=== PATIENT | male | born 1955 | race Hispanic/Latino ===

== ENCOUNTER → 2024-01-26 | Emergency (ER) | payer OTHER ==
[~2024-01-26] MED LIST: HYDRALAZINE HCL 20 MG/ML VIAL ONE; LOSARTAN POTASSIUM 50 MG TABLET ONE; MECLIZINE HCL 12.5 MG TAB ONE; TENECTEPLASE 50 MG/10 ML VIAL IV ONE; cloNIDine HCL 0.1 MG TAB ONE
[2024-01-26 04:49] LABS: PT Prothrombin Time 10.9 SECONDS (9.5-12.5); Protime INR 0.99
[2024-01-26 04:52] LABS: Absolute Basophils 0.1 K/uL (0-0.5); Absolute Eosinophils 0.2 K/uL (0-0.5); Absolute Lymphocytes (CBC) 2.2 K/uL (0.7-4.9); Absolute Monocytes 0.7 K/uL (0.1-1.3); Basophils % 0.7 % (0-1.3); Hematocrit 37.2 % (39.6-49.0); Hemoglobin 12.7 g/dL (13.6-17.9); Lymphocytes % 26.2 % (15.3-44.8); MCH 31.7 pg (27.0-35.0); MCHC 34.1 g/dL (32.0-36.0); MCV 92.8 fL (80-100); MPV 9.7 fL (7.6-11.3); Monocytes % 8.9 % (3.3-12.3); Neutrophils % 61.2 % (41.7-73.7); Nucleated Red Blood Cells % 0.1 % (0-0); Platelets 172 thou/uL (152-406); RBC Red Blood Cell Count 4.01 M/uL (4.33-5.43); Red Cell Distribution Width 13.7 % (12.1-15.2)
[2024-01-26 05:15] LABS: Albumin 3.9 g/dL (3.4-5.0); Albumin/Globulin Ratio 1.1 (1.1-1.8); Anion Gap 9.8 mEq/L (5.0-15.0); Bilirubin Direct 0.2 mg/dL (0-0.2); Bilirubin Indirect, Calculated 0.5 mg/dL (0.2-0.8); Bilirubin Total 0.7 mg/dL (0.2-1.0); Globulin 3.6 g/dL (2.3-3.5); Magnesium 2.3 mg/dL (1.6-2.4); Potassium 3.8 mEq/L (3.5-5.1); Protein, Total 7.5 g/dL (6.4-8.2); Troponin High Sensitivity 18.6 pg/mL (<58.9)
--- NOTE | 2024-01-26 06:16 | EDPHYS ---
Physician Documentation [facility] Name: Beau Euceda Age: 68 yrs Sex: Male : 1955 Arrival Date: 01/26/2024 Time: 04:14 Bed 5 Private MD: ED Physician Parth Hernández HPI: 01/25 04:21 This 68 yrs old Male presents to ER via Unassigned with complaints of General sp4 Weakness, Dizziness. 04:35 68-year-old male presents with acute onset of generalized weakness and vertigo starting sp4 at 1 AM today. Historical: - Allergies: 04:44 No Known Allergies; jb4 - PMHx: 04:44 None; jb4 - PSHx: 04:44 None; jb4 - Immunization history:: Adult Immunizations not up to date. - Social history:: Smoking status: Patient reports the use of cigarette tobacco products, 4 Cigarettes per day. - Family history:: not pertinent. ROS: 04:35 Constitutional: Negative for fever, chills, and weight loss, positive for generalized sp4 weakness and vertigo Eyes: Negative for injury, pain, redness, and discharge, 04:35 All other systems are negative, Exam: 04:34 ECG was reviewed by the Attending Physician. EKG 0 412 , normal sinus rhythm at the sp4 rate of 71 04:35 Constitutional: This is a well developed, well nourished patient who is awake, alert, sp4 and in no acute distress. Head/Face: Normocephalic, atraumatic. Eyes: Pupils equal round and reactive to light, extra-ocular motions intact. Lids and lashes normal. Conjunctiva and sclera are not injected. Cornea within normal limits. Periorbital areas with no swelling, redness, or edema. ENT: Nares patent. No nasal discharge, no septal abnormalities noted. Tympanic membranes are normal and external auditory canals are clear. Oropharynx with no redness, swelling, or masses, exudates, or evidence of obstruction, uvula midline. Mucous membranes moist. Neck: Trachea midline, no thyromegaly or masses palpated, and no cervical lymphadenopathy. Supple, full range of motion without nuchal rigidity, or vertebral point tenderness. Chest/axilla: Normal chest wall appearance and motion. Nontender with no deformity. No lesions are appreciated. Cardiovascular: Regular rate and rhythm with a normal S1 and S2. No gallops, murmurs, or rubs. Normal PMI, no JVD. No pulse deficits. Respiratory: Lungs have equal breath sounds bilaterally, clear to auscultation and percussion. No rales, rhonchi or wheezes noted. No increased work of breathing, no retractions or nasal flaring. Abdomen/GI: Soft, with normal bowel sounds. No distension or tympany. No guarding or rebound. No evidence of tenderness throughout. Back: No spinal tenderness. No costovertebral tenderness. Skin: Warm, dry with normal turgor. Normal color with no rashes, no lesions, and no evidence of cellulitis. MS/ Extremity: Pulses equal, no cyanosis. Neurovascular intact. Full, normal range of motion. Neuro: Awake and alert, GCS 15, oriented to person, place, time, and situation. Cranial nerves II-XII grossly intact. Motor strength 5/5 in all extremities. Sensory grossly intact. Psych: Awake, alert, with orientation to person, place and time. Behavior, mood, and affect are within normal limits Vital Signs: 04:23 Pulse 77; Resp 16; Temp 97.8(O); Pulse Ox 99% ; Weight 89 kg; Height 5 ft. 10 in. ; hb Pain 0/10; 05:26 BP 177 / 92; Pulse 78; Resp 18; Temp 97.8; Pulse Ox 99% on R/A; Pain 0/10; bm8 06:30 BP 163 / 110; Pulse 75; Resp 21; Pulse Ox 98% ; vc1 07:15 BP 112 / 62; Pulse 58; Resp 15; Pulse Ox 100% on R/A; hb 07:30 BP 136 / 74; Pulse 66; Resp 17; Pulse Ox 100% on R/A; hb 07:45 BP 112 / 62; Pulse 59; Resp 15; Pulse Ox 98% on R/A; hb 04:23 Body Mass Index 28.15 (89.00 kg, 177.8 cm) hb 04:23 Pain Scale: Adult hb 05:26 Pain Scale: Adult bm8 NIH Stroke Scale Scores: 04:35 NIHSS Score: 0 sp4 07:15 NIHSS Score: 11 hb 07:17 NIHSS Score: 11 sp4 [place] Score: 04:30 Eye Response: spontaneous(4). Motor Response: obeys commands(6). Verbal Response: km8 oriented(5). Total: 15. 04:35 Eye Response: spontaneous(4). Motor Response: obeys commands(6). Verbal Response: sp4 oriented(5). Total: 15. MDM: 04:29 Patient medically screened. sp4 04:58 Differential diagnosis: cardiac arrhythmia, generalized weakness, head injury, sp4 hypovolemia, idiopathic dizziness. Data reviewed: vital signs, nurses notes, lab test result(s), EKG, radiologic studies, CT scan, plain films. ED course: EXAM DESCRIPTION: Chest Single View CLINICAL HISTORY: dizziness COMPARISON: CXR, 12-31-2015. FINDINGS: Cardiac silhouette is within normal limits. EKG leads project over the chest. Decreased lung volumes could be secondary to underinflation. There is no focal parenchymal or pleural disease. There is no acute osseous process visualized. IMPRESSION: No evidence of acute cardiopulmonary disease. . 06:02 ED course: EXAM DESCRIPTION: CT Head Brain Wo Cont CLINICAL HISTORY: vertigo acute sp4 COMPARISON: 01/07/2016. TECHNIQUE: Contiguous axial images of the brain were obtained without the administration of intravenous contrast. This exam was performed according to our departmental dose-optimization program, which includes automated exposure control, adjustment of the mA and/or kV according to patient size and/or use of iterative reconstruction technique. FINDINGS: There is no acute intracranial hemorrhage or mass effect. Ventricular system is within normal limits. There is adequate flanagan-white matter differentiation. There is no skull fracture. Mild mucoperiosteal thickening of the maxillary sinuses compatible with mild chronic sinusitis changes. IMPRESSION: No acute intracranial abnormalities. . 06:14 Consideration of Admission/Observation Patient was admitted/placed on observation. sp4 Escalation of care including admission/observation considered. Management of patient was discussed with the following: Hospitalist: Admission team . ED course: Patient warrants admission for blood pressure control. 07:17 ED course: Shortly after 6:13 AM patient has developed acute left-sided weakness with sp4 sensory deficits and slurring of the speech. TNK was considered with the patient patient and his have agreed for a margin TNK administration. . 07:19 ED course: TNK was ordered and TNK administration was ordered. sp4 07:19 ED course: EXAM DESCRIPTION: CT Head Brain Wo Cont CLINICAL HISTORY: vertigo acute sp4 COMPARISON: 01/07/2016. TECHNIQUE: Contiguous axial images of the brain were obtained without the administration of intravenous contrast. This exam was performed according to our departmental dose-optimization program, which includes automated exposure control, adjustment of the mA and/or kV according to patient size and/or use of iterative reconstruction technique. FINDINGS: There is no acute intracranial hemorrhage or mass effect. Ventricular system is within normal limits. There is adequate flanagan-white matter differentiation. There is no skull fracture. Mild mucoperiosteal thickening of the maxillary sinuses compatible with mild chronic sinusitis changes. IMPRESSION: No acute intracranial abnormalities. Electronically signed by: Gomez Plata MD 01/26/2024 05:20 AM. 08:21 Transition of care: After a detail discussion of the patient's case, care is sp4 transferred to Roger Phillips MD. 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 Images performed following intravenous administration of 100mL Isovue 370. All CT scans are performed using dose optimization technique as appropriate and may include automated exposure control or mA/KV adjustment according to patient size. FINDINGS: Tortuosity with marked caliber attenuation at a branch point suggesting high-grade stenosis versus branch occlusion at the proximal A2 segment, see series 412, image 115 and series 401 image 225. Mild focal narrowing along the proximal right A1 segment, axial image 222. No other evidence of large vessel occlusion or significant stenosis. No evidence of aneurysm or dissection flap is detected. No flow-limiting stenosis or vascular malformation identified. Antegrade flow is seen in the vertebral arteries. The vertebral arteries are codominant. The visualized dural venous sinuses are grossly patent. IMPRESSION: Marked caliber attenuation and tortuosity along the proximal right A2 segment, suggesting high-grade stenosis versus branch occlusion of the ANGELI. The findings were communicated to Dr. Hernández on 01/26/2024 at 08:13 hours. 08:28 ED course: CT has revealed IMPRESSION: Marked caliber attenuation and tortuosity along sp4 the proximal right A2 segment, suggesting high-grade stenosis versus branch occlusion of the ANGELI. This was discussed with attending neurologist who recommended emergent transfer to the [facility] for endovascular intervention. Patient was discussed with attending neurologist at [facility] who has accepted patient as ER to ER transfer for consideration for mechanical thrombectomy. . 01/25 04:29 Order name: Basic Metabolic Panel; Complete Time: 06:00 sp4 01/25 04:29 Order name: CBC with Diff; Complete Time: 06:00 sp4 01/25 04:29 Order name: LFT's; Complete Time: 06:00 sp4 01/25 04:29 Order name: Magnesium; Complete Time: 06:00 sp4 01/25 04:29 Order name: NT PRO-BNP; Complete Time: 06:00 sp4 01/25 04:29 Order name: PT-INR; Complete Time: 04:58 sp4 01/25 04:29 Order name: Troponin HS; Complete Time: 06:00 sp4 01/25 04:42 Order name: Glucose, Ancillary Testing; Complete Time: 04:49 EDMS 01/25 04:29 Order name: XRAY Chest (1 view) sp4 01/25 04:29 Order name: CT Head Brain wo Cont sp4 01/25 07:31 Order name: Head angio; Complete Time: 08:20 EDMS 01/25 07:31 Order name: Neck Angio EDMS 01/25 04:29 Order name: EKG; Complete Time: 04:30 sp4 01/25 04:29 Order name: Cardiac monitoring; Complete Time: 04:30 sp4 01/25 04:29 Order name: EKG - Nurse/Tech; Complete Time: 04:30 sp4 01/25 04:29 Order name: IV Saline Lock; Complete Time: 04:31 sp4 01/25 04:29 Order name: Labs collected and sent; Complete Time: 04:31 sp4 01/25 04:29 Order name: O2 Per Protocol; Complete Time: 04:31 sp4 01/25 04:29 Order name: O2 Sat Monitoring; Complete Time: 04:31 sp4 01/25 04:30 Order name: Blood Glucose Level; Complete Time: 04:30 km8 EC:34 Rate is 71 beats/min. Rhythm is regular, Normal Sinus Rhythm. QRS [place] is Normal. ND sp4 interval is normal. QRS interval is normal. QT interval is normal. No Q waves. T waves are Normal. No ST changes noted. Clinical impression: No evidence of ischemia. Interpreted by me. Reviewed by me. Administered Medications: 04:34 Drug: Meclizine PO 50 mg PO once Route: PO; km8 06:12 Follow up: Response: No adverse reaction bm8 04:50 Drug: hydrALAZINE IVP 20 mg IVP once Route: IVP; Site: right antecubital; km8 05:33 Follow up: Response: No adverse reaction; Marked relief of symptoms bm8 06:12 Drug: Losartan PO 100 mg PO once Route: PO; jb4 06:15 Drug: cloNIDine PO 0.2 mg PO once Route: PO; jb4 07:20 Drug: TNK FOR STROKE - Tenecteplase IV 0.25 mg/kg IV at per protocol once; MAX hb DOSE 25 mg, IVP over 5 seconds {Co-Signature: vish (Bon Culver RN).} Route: IV; Rate: per protocol; Site: right forearm; Disposition Summary: 01/26/24 08:28 Transfer Ordered Notes: Transfer Location: [facility] sp4 Reason: Higher level of care sp4 Condition: Stable(01/26/24 08:28) sp4 Problem: new(01/26/24 08:28) sp4 Symptoms: have improved(01/26/24 08:28) sp4 Accepting Physician: [facility] Attending Neurology(01/26/24 08:59) hb Diagnosis - Acute ischemic CVA, acute left-sided hemiparesis, 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 Total time: 60 minutes NIH Stroke Scale - NIH Stroke Score Date: 01/26/2024 Time: 04:35 Total Score = 0 10. Dysarthria (speech clarity - read or repeat words) - 0(Normal) 11. Extinction and Inattention (visual/tactile/auditory/spatial/personal) - 0(No abnormality) 1a. Level of Consciousness (LOC) - 0(Alert) 1b. Level of Consciousness (LOC) (Month \T\ Age) - 0(Both) 1c. LOC Commands (Open \T\ Closes Eyes/Circular Tank [place]) - 0(Both) 2. Best Gaze (Lateral Gaze Paresis) - 0(Normal) 3. Visual Field Loss - 0(No visual loss) 4. Facial Palsy - 0(Normal) 5a. Left Arm: Motor (10-second hold) - 0(No drift) 5b. Right Arm: Motor (10-second hold) - 0(No drift) 6a. Left Leg: Motor (5-second hold - always test supine) - 0(No drift) 6b. Right Leg: Motor (5-second hold - always test supine) - 0(No drift) 7. Limb Ataxia (finger/nose \T\ heel/bashir - test with eyes open) - 0(Absent) 8. Sensory Loss (pinprick arms/legs/face) - 0(Normal) 9. Best Language: Aphasia (description/naming/reading) - 0(No aphasia) Initials: sp4 NIH Stroke Scale - NIH Stroke Score Date: 01/26/2024 Time: 07:15 Total Score = 11 10. Dysarthria (speech clarity - read or repeat words) - 1(Mild to Moderate) 11. Extinction and Inattention (visual/tactile/auditory/spatial/personal) - 0(No abnormality) 1a. Level of Consciousness (LOC) - 0(Alert) 1b. Level of Consciousness (LOC) (Month \T\ Age) - 0(Both) 1c. LOC Commands (Open \T\ Closes Eyes/Circular Tank [place]) - 0(Both) 2. Best Gaze (Lateral Gaze Paresis) - 1(Partial gaze palsy) 3. Visual Field Loss - 1(Partial hemianopia) 4. Facial Palsy - 1(Minor Paralysis) 5a. Left Arm: Motor (10-second hold) - 3(No effort against gravity) 5b. Right Arm: Motor (10-second hold) - 0(No drift) 6a. Left Leg: Motor (5-second hold - always test supine) - 3(No effort against gravity) 6b. Right Leg: Motor (5-second hold - always test supine) - 0(No drift) 7. Limb Ataxia (finger/nose \T\ heel/bashir - test with eyes open) - 0(Absent) 8. Sensory Loss (pinprick arms/legs/face) - 1(Mild to moderate loss) 9. Best Language: Aphasia (description/naming/reading) - 0(No aphasia) Initials: NIH Stroke Scale - NIH Stroke Score Date: 01/26/2024 Time: 07:17 Total Score = 11 10. Dysarthria (speech clarity - read or repeat words) - 1(Mild to Moderate) 11. Extinction and Inattention (visual/tactile/auditory/spatial/personal) - 0(No abnormality) 1a. Level of Consciousness (LOC) - 0(Alert) 1b. Level of Consciousness (LOC) (Month \T\ Age) - 0(Both) 1c. LOC Commands (Open \T\ Closes Eyes/Circular Tank [place]) - 0(Both) 2. Best Gaze (Lateral Gaze Paresis) - 1(Partial gaze palsy) 3. Visual Field Loss - 1(Partial hemianopia) 4. Facial Palsy - 1(Minor Paralysis) 5a. Left Arm: Motor (10-second hold) - 3(No effort against gravity) 5b. Right Arm: Motor (10-second hold) - 0(No drift) 6a. Left Leg: Motor (5-second hold - always test supine) - 3(No effort against gravity) 6b. Right Leg: Motor (5-second hold - always test supine) - 0(No drift) 7. Limb Ataxia (finger/nose \T\ heel/bashir - test with eyes open) - 0(Absent) 8. Sensory Loss (pinprick arms/legs/face) - 1(Mild to moderate loss) 9. Best Language: Aphasia (description/naming/reading) - 0(No aphasia) Initials: sp4 Signatures: Dispatcher [employer] EDMS Vicky Nash RN RN Bon Culver RN RN jb4 Parth Hernández MD MD sp4 Kristy Rawls RN RN 8 Remi Lopes RN 8 Bon Culver RN jb4 Corrections: (The following items were deleted from the chart) 08: 06:16 Observation sp4 sp4 08:23 06:16 Roger Phillips sp4 sp4 08:23 06:16 Telemetry/MedSurg (observation) sp4 sp4 08:23 06:16 Stable sp4 sp4 08: 06:16 new sp4 sp4 08: 06:16 have improved sp4 sp4 08: 06:16 Standard sp4 sp4 08: 06:16 sp4 sp4 08:23 06:16 Essential (primary) hypertension sp4 sp4 08: 06:16 Hypertensive urgency, generalized weakness, acute vertigo sp4 sp4 08:59 08:28 [facility] Attending Neurology sp4 hb
--- NOTE | 2024-01-26 06:16 | ER ---
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 It feels like the room is spinning in front of my eyes. Coronavirus screen: At this time, the client does not indicate any symptoms associated with coronavirus-19. Ebola Screen: No symptoms or risks identified at this time. Initial Sepsis Screen: Does the patient meet any 2 criteria? No. Patient's initial sepsis screen is negative. Does the patient have a suspected source of infection? No. Patient's initial sepsis screen is negative. Risk Assessment: Do you want to hurt yourself or someone else? Patient reports no desire to harm self or others. Onset of symptoms was January 26, 2024. Transition of care: patient was not received from another setting of care. 04:23 Method Of Arrival: Wheelchair jb4 04:23 Acuity: ELEONORA 3 jb4 Triage Assessment: 04:44 General: Appears in no apparent distress. comfortable, Behavior is calm, cooperative, jb4 appropriate for age. Pain: Denies pain. Neuro: Level of Consciousness is awake, alert, obeys commands, Oriented to person, place, time, situation, Reports dizziness, since 0300. Cardiovascular: Patient's skin is warm and dry. Respiratory: Airway is compromised Respiratory effort is even, unlabored, Respiratory pattern is regular, symmetrical. Derm: Skin is intact, Skin is pink, warm \T\ dry. Historical: - Allergies: 04:44 No Known Allergies; jb4 - PMHx: 04:44 None; jb4 - PSHx: 04:44 None; jb4 - Immunization history:: Adult Immunizations not up to date. - Social history:: Smoking status: Patient reports the use of cigarette tobacco products, 4 Cigarettes per day. - Family history:: not pertinent. Screenin:[address] [facility] ED Fall Risk Assessment (Adult) History of falling in the last 3 months, km8 including since admission No falls in past 3 months (0 pts) Confusion or Disorientation No (0 pts) Intoxicated or Sedated No (0 pts) Impaired Gait No (0 pts) Mobility Assist Device Used No (0 pt) Altered Elimination No (0 pt) Score/Fall Risk Level 0 - 2 = Low Risk Oriented to surroundings, Maintained a safe environment, Educated pt \T\ family on fall prevention, incl call for assistance when getting out of bed, Assessed \T\ reinforced patient's understanding of fall precautions, Provided non-skid footwear, Hourly rounding (assess needs \T\ fall precautionary measures) done, Used ambulatory aids as needed (educated on \T\ assisted with). Abuse screen: Denies threats or abuse. Denies injuries from another. Nutritional screening: No deficits noted. Tuberculosis screening: No symptoms or risk factors identified. 04:30 [place] Swallow Protocol Exclusion Criteria: Unable to remain alert for testing: No NPO km8 for medical/surgical reason by provider order No Head-of-bed restricted <30 degrees Tracheostomy tube present No No thin liquids due to preexisting dysphagia/baseline modified diet thickened liquids No Brief Cognitive Screen What is your name? Normal, Where are you right now? Normal, What year is it? Normal. Oral Mechanism Examination Facial Symmetry: Normal, Motion: Normal, Lip Closure: Normal, Oral Mechanism Result: Normal. 3 oz Water Swallow Challenge: Pt able to drink all water without stopping, coughing, choking or throat clearing: Yes Result: PASS. 07:30 [place] Swallow Protocol Exclusion Criteria: Unable to remain alert for testing: No NPO hb for medical/surgical reason by provider order No Tracheostomy tube present No No thin liquids due to preexisting dysphagia/baseline modified diet thickened liquids No Brief Cognitive Screen What is your name? Normal, Where are you right now? Normal, What year is it? Normal. Oral Mechanism Examination Facial Symmetry: Normal, Motion: Normal, Lip Closure: Normal, Oral Mechanism Result: Normal. 3 oz Water Swallow Challenge: Pt able to drink all water without stopping, coughing, choking or throat clearing: Yes Result: PASS. Assessment: 04:30 General: Appears in no apparent distress. comfortable, Behavior is calm, cooperative, km8 appropriate for age. Pain: Denies pain. Neuro: Level of Consciousness is awake, alert, obeys commands, Oriented to person, place, time, situation, Media Strategist are equal bilaterally Moves all extremities. 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 Cardiovascular: Denies chest pain, shortness of breath, Patient's skin is warm and dry. Respiratory: Airway is patent Respiratory effort is even, unlabored, Respiratory pattern is regular, symmetrical. GI: No signs and/or symptoms were reported involving the gastrointestinal system. : No signs and/or symptoms were reported regarding the genitourinary system. EENT: No signs and/or symptoms were reported regarding the EENT system. Derm: No signs and/or symptoms reported regarding the dermatologic system. Skin is intact, is healthy with good turgor, Skin is dry, Skin is normal, Skin temperature is warm. Musculoskeletal: No signs and/or symptoms reported regarding the musculoskeletal system. Range of motion: intact in all extremities. 05:30 Reassessment: No changes from previously documented assessment. Patient and/or family vc1 updated on plan of care and expected duration. Pain level reassessed. Patient is alert, oriented x 3, equal unlabored respirations, skin warm/dry/pink. 06:35 General: Appears in no apparent distress. comfortable, Behavior is calm, cooperative, vc1 appropriate for age, Patient ambulated to bathroom by nurse. 07:05 Reassessment: Report received from Abrahan CARPENTER, pt hospitalized in ED awaiting room hb assignment, c/o sudden onset left sided weakness that started at approx [address] Hernández at bedside to discuss TNK with pt and . 07:20 Reassessment: TNK administered to 20g RFA, see paper chart for stroke hb ovservations/vitals. Vital Signs: 04:23 Pulse 77; Resp 16; Temp 97.8(O); Pulse Ox 99% ; Weight 89 kg; Height 5 ft. 10 in. ; hb Pain 0/10; 05:26 BP 177 / 92; Pulse 78; Resp 18; Temp 97.8; Pulse Ox 99% on R/A; Pain 0/10; bm8 06:30 BP 163 / 110; Pulse 75; Resp 21; Pulse Ox 98% ; vc1 07:15 BP 112 / 62; Pulse 58; Resp 15; Pulse Ox 100% on R/A; hb 07:30 BP 136 / 74; Pulse 66; Resp 17; Pulse Ox 100% on R/A; hb 07:45 BP 112 / 62; Pulse 59; Resp 15; Pulse Ox 98% on R/A; hb 04:23 Body Mass Index 28.15 (89.00 kg, 177.8 cm) hb 04:23 Pain Scale: Adult hb 05:26 Pain Scale: Adult bm8 Bronson Coma Score: 04:30 Eye Response: spontaneous(4). Motor Response: obeys commands(6). Verbal Response: km8 oriented(5). Total: 15. 04:35 Eye Response: spontaneous(4). Motor Response: obeys commands(6). Verbal Response: sp4 oriented(5). Total: 15. NIH Stroke Scale Scores: 04:35 NIHSS Score: 0 sp4 07:15 NIHSS Score: 11 hb 07:17 NIHSS Score: 11 sp4 ED Course: 04:16 Patient arrived in ED. jj6 04:21 Parth Hernández MD is Attending Physician. sp4 04:25 Triage completed. jb4 04:30 Patient has correct armband on for positive identification. Placed in gown. Bed in low km8 position. Call light in reach. Side rails up X2. Adult w/ patient. electronic device monitor on. Pulse ox on. NIBP on. Warm blanket given. 04:30 Patient maintains SpO2 saturation greater than 95% on room air. km8 04:35 Inserted saline lock: 20 gauge in left antecubital area, using aseptic technique. Blood km8 collected. 04:43 XRAY Chest (1 view) In Process Unspecified. EDMS 04:44 Arm band placed on right wrist. jb4 04:50 CT Head Brain wo Cont In Process Unspecified. EDMS 05:17 Patient requests rest room assistance. km8 05:26 Remi Lopes, RN is Primary Nurse. bm8 05:26 Assisted to bathroom. bm8 05:26 No provider procedures requiring assistance completed. bm8 06:15 Roger Phillips MD is Hospitalizing Provider. sp4 07:10 Provided Education on: TNK administration and consent. hb 07:12 Inserted saline lock: 20 gauge in right forearm, using aseptic technique. hb 07:25 RN/GARBAGE COLLECTOR DRIVER escort patient out of department to CT scan. hb 07:39 Head angio In Process Unspecified. EDMS 07:39 Neck Angio In Process Unspecified. EDMS 08:24 initiated transfer to [facility]. bd 08:32 Inserted saline lock: 18 gauge in right forearm, using aseptic technique. hb 08:40 Patient transferred, IV remains in place. hb 09:02 pt accepted in transfer to [facility] ER by dr Meng, admin approval given by hina Madrid. Administered Medications: 04:34 Drug: Meclizine PO 50 mg PO once Route: PO; km8 06:12 Follow up: Response: No adverse reaction bm8 04:50 Drug: hydrALAZINE IVP 20 mg IVP once Route: IVP; Site: right antecubital; km8 05:33 Follow up: Response: No adverse reaction; Marked relief of symptoms bm8 06:12 Drug: Losartan PO 100 mg PO once Route: PO; jb4 06:15 Drug: cloNIDine PO 0.2 mg PO once Route: PO; jb4 07:20 Drug: TNK FOR STROKE - Tenecteplase IV 0.25 mg/kg IV at per protocol once; MAX hb DOSE 25 mg, IVP over 5 seconds {Co-Signature: jbDarrion (Bon Culver RN).} Route: IV; Rate: per protocol; Site: right forearm; Medication: 05:26 VIS not applicable for this client. bm8 Outcome: 06:16 Decision to Hospitalize by Provider. sp4 08:28 ER care complete, transfer ordered by . sp4 08:40 Transferred by helicopter to [facility], hb 08:40 Condition: unchanged 08:40 Instructed on the need for transfer, Demonstrated understanding of instructions, 08:59 Patient left the ED. NIH Stroke Scale - NIH Stroke Score Date: 01/26/2024 Time: 04:35 Total Score = 0 10. Dysarthria (speech clarity - read or repeat words) - 0(Normal) 11. Extinction and Inattention (visual/tactile/auditory/spatial/personal) - 0(No abnormality) 1a. Level of Consciousness (LOC) - 0(Alert) 1b. Level of Consciousness (LOC) (Month \T\ Age) - 0(Both) 1c. LOC Commands (Open \T\ Closes Eyes/Physicist Nuclear) - 0(Both) 2. Best Gaze (Lateral Gaze Paresis) - 0(Normal) 3. Visual Field Loss - 0(No visual loss) 4. Facial Palsy - 0(Normal) 5a. Left Arm: Motor (10-second hold) - 0(No drift) 5b. Right Arm: Motor (10-second hold) - 0(No drift) 6a. Left Leg: Motor (5-second hold - always test supine) - 0(No drift) 6b. Right Leg: Motor (5-second hold - always test supine) - 0(No drift) 7. Limb Ataxia (finger/nose \T\ heel/bashir - test with eyes open) - 0(Absent) 8. Sensory Loss (pinprick arms/legs/face) - 0(Normal) 9. Best Language: Aphasia (description/naming/reading) - 0(No aphasia) Initials: sp4 NIH Stroke Scale - NIH Stroke Score Date: 01/26/2024 Time: 07:15 Total Score = 11 10. Dysarthria (speech clarity - read or repeat words) - 1(Mild to Moderate) 11. Extinction and Inattention (visual/tactile/auditory/spatial/personal) - 0(No abnormality) 1a. Level of Consciousness (LOC) - 0(Alert) 1b. Level of Consciousness (LOC) (Month \T\ Age) - 0(Both) 1c. LOC Commands (Open \T\ Closes Eyes/Physicist Nuclear) - 0(Both) 2. Best Gaze (Lateral Gaze Paresis) - 1(Partial gaze palsy) 3. Visual Field Loss - 1(Partial hemianopia) 4. Facial Palsy - 1(Minor Paralysis) 5a. Left Arm: Motor (10-second hold) - 3(No effort against gravity) 5b. Right Arm: Motor (10-second hold) - 0(No drift) 6a. Left Leg: Motor (5-second hold - always test supine) - 3(No effort against gravity) 6b. Right Leg: Motor (5-second hold - always test supine) - 0(No drift) 7. Limb Ataxia (finger/nose \T\ heel/bashir - test with eyes open) - 0(Absent) 8. Sensory Loss (pinprick arms/legs/face) - 1(Mild to moderate loss) 9. Best Language: Aphasia (description/naming/reading) - 0(No aphasia) Initials: hb NIH Stroke Scale - NIH Stroke Score Date: 01/26/2024 Time: 07:17 Total Score = 11 10. Dysarthria (speech clarity - read or repeat words) - 1(Mild to Moderate) 11. Extinction and Inattention (visual/tactile/auditory/spatial/personal) - 0(No abnormality) 1a. Level of Consciousness (LOC) - 0(Alert) 1b. Level of Consciousness (LOC) (Month \T\ Age) - 0(Both) 1c. LOC Commands (Open \T\ Closes Eyes/Physicist Nuclear) - 0(Both) 2. Best Gaze (Lateral Gaze Paresis) - 1(Partial gaze palsy) 3. Visual Field Loss - 1(Partial hemianopia) 4. Facial Palsy - 1(Minor Paralysis) 5a. Left Arm: Motor (10-second hold) - 3(No effort against gravity) 5b. Right Arm: Motor (10-second hold) - 0(No drift) 6a. Left Leg: Motor (5-second hold - always test supine) - 3(No effort against gravity) 6b. Right Leg: Motor (5-second hold - always test supine) - 0(No drift) 7. Limb Ataxia (finger/nose \T\ heel/bashir - test with eyes open) - 0(Absent) 8. Sensory Loss (pinprick arms/legs/face) - 1(Mild to moderate loss) 9. Best Language: Aphasia (description/naming/reading) - 0(No aphasia) Initials: sp4 Signatures: Dispatcher [employer] EDKalani Barger Heather, RN RN Bon Culver RN RN jb4 Valerie Riveraj6 Selene High RN RN 1 Parth Hernández MD MD sp4 Kristy Rawls RN RN km8 Remi Lopes RN RN 8 Bon Culver RN jb4 Corrections: (The following items were deleted from the chart) 05:15 04:30 Neuro: Level of Consciousness is awake, alert, obeys commands, Oriented km8 to person, place, time, situation, Media Strategist are equal bilaterally Moves all extremities. Gait is steady, Speech is normal, Reports dizziness, km8 08:26 04:23 Pulse 77bpm; Resp 16bpm; Pulse Ox 99%; Temp 97.8F Oral; 94.35 kg; Height hb 5 ft. 10 in.; BMI: 29.8; Pain 0/10, Adult; jb4 08: 08:17 [facility] hb hb : 08:17 Condition: stable hb hb : 08:17 Instructed on the need for admit, Demonstrated understanding of hb instructions, hb 08:58 08:18 Patient admitted, IV remains in place. hb hb
--- NOTE | 2024-01-26 08:19 | RAD REPORT ---
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 Images performed following intravenous administration of 100mL Isovue 370. All CT scans are performed using dose optimization technique as appropriate and may include automated exposure control or mA/KV adjustment according to patient size. FINDINGS: Tortuosity with marked caliber attenuation at a branch point suggesting high-grade stenosi s versus branch occlusion at the proximal A2 segment, see series 412, image 115 and series 401 image 225. Mild focal narrowing along the proximal right A1 segment, axial image 222. No other evidence of large vessel occlusion or significant stenosis. No evidence of aneurysm or dissection flap is detecte d. No flow-limiting stenosis or vascular malformation identified. Antegrade flow is seen in the vertebral arteries. The vertebral arteries are codominant. The visualized dural venous sinuses are grossly patent. IMPRESSION: Marked caliber attenuation and tortuosity along the proximal right A2 segment, suggestin g high-grade stenosis versus branch occlusion of the ANGELI. The findings were communicated to Dr. Hernández on 01/26/2024 at 08:13 hours.
--- NOTE | 2024-01-26 08:23 | RAD REPORT ---
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 Images performed following intravenous administration of 100mL Isovue 370. All CT scans are performed using dose optimization technique as appropriate and may include automated exposure control or mA/KV adjustment according to patient size. Quantification of carotid stenosis, if any, is performed according to NASCET criteria. FINDINGS: A left aortic arch is identified with normal three vessel configuration of the great vesse ls. No significant flow abnormality is seen of the common carotid bilaterally. No significant stenosis is identified involving the cervical segments on the right internal carotid a rtery, with moderate atherosclerotic plaque formation along the proximal segment resulting in less th an 50% stenosis. Moderate to advanced calcific plaque formation along the proximal left ICA, with lum inal caliber measuring 1.5 mm at the narrowest, compared to 4.4 mm more distally, amounting to 66% st enosis by NASCET criteria. Normal flow is seen within both vertebral arteries. IMPRESSION: Moderate to advanced atherosclerotic plaque along the proximal left ICA, resulting in 66 % stenosis by NASCET criteria. Moderate atherosclerotic plaque along the proximal right ICA, with less than 50% stenosis. Vertebral arteries are patent. CAROTID STENOSIS REFERENCE USING NASCET CRITERIA: % ICA stenosis = (1 - narrowest ICA diameter/diameter of distal cervical ICA) x 100. Mild - <50% stenosis. Moderate - 50-69% stenosis. Severe - 70-94% stenosis. Near occlusion - 95-99% stenosis. Occluded - 100% stenosis.
[2024-01-26 09:12] VITALS: BP 112/62; TEMP 97.8; O2SAT 98
--- NOTE | 2024-01-26 10:45 | RAD REPORT ---
EXAM DESCRIPTION: RAD - Chest Single View - 01/26/2024 4:41 am CLINICAL HISTORY: Dizziness COMPARISON: CXR, 12-31-2015. FINDINGS: Cardiac silhouette is within normal limits. EKG leads project over the chest. Decreased cynthia ng volumes could be secondary to underinflation. There is no focal parenchymal or pleural disease. Th ere is no acute osseous process visualized. IMPRESSION: No evidence of acute cardiopulmonary disease. Electronically signed by: Gomez Plata MD 01/26/2024 04:53 AM CDT Due to temporary technical issues with the PACS/Fluency reporting system, reports are being signed by the in house radiologist without review as a courtesy to ensure prompt reporting. The interpreting r adiologist is fully responsible for the content of the report.
--- NOTE | 2024-01-26 12:46 | EKG ---
Test Date: 2024-01-26 Test Time: 04:12:33 Record Changer Assembler: MARTIR MEASUREMENT RESULTS: Intervals: Rate: 71 IN: 158 QRSD: 98 QT: 404 QTc: 439 [place]: P: 51 IN: 158 QRS: -9 T: -17 INTERPRETIVE STATEMENTS: Normal sinus rhythm Nonspecific ST abnormality Abnormal ECG No previous ECG available for comparison Electronically Signed On 01-26-24 12:45:11 CDT by Boo Rivera
--- NOTE | 2024-01-26 19:41 | RAD REPORT ---
EXAM DESCRIPTION: CT - Head Brain Wo Cont - 01/26/2024 6:53 am CLINICAL HISTORY: Vertigo acute COMPARISON: 01/07/2016. TECHNIQUE: Contiguous axial images of the brain were obtained without the administration of intraven ous contrast. This exam was performed according to our departmental dose-optimization program, which includes automated exposure control, adjustment of the mA and/or kV according to patient size and/or use of iterative reconstruction technique. FINDINGS: There is no acute intracranial hemorrhage or mass effect. Ventricular system is within nor mal limits. There is adequate flanagan-white matter differentiation. There is no skull fracture. Mild muc operiosteal thickening of the maxillary sinuses compatible with mild chronic sinusitis changes. IMPRESSION: No acute intracranial abnormalities. Electronically signed by: Gomez Plata MD 01/26/2024 05:20 AM CDT Due to temporary technical issues with the PACS/Fluency reporting system, reports are being signed by the in house radiologists without review as a courtesy to insure prompt reporting. The interpreting radiologist is fully responsible for the content of the report.
== END ==
LOC: ER 04:14
DX: I63.9 Cerebral infarction, unspecified (principal); G81.94 Hemiplegia, unspecified affecting left nondominant side; I66.12 Occlusion and stenosis of left anterior cerebral artery; R29.711 NIHSS score 11; F17.210 Nicotine dependence, cigarettes, uncomplicated
CPT/HCPCS: 93005; 85025; 80048; 36415; 83735; 85610; 82947; 80076; 84484; 83880; 70450; 70496; 70498; 71045; 96374; Q9967; J8597; J3101; J0360

== ENCOUNTER 2024-02-01 11:40 | Inpatient (IN) | payer OTHER ==
[2024-02-01] MEDS ORDERED: BISACODYL E.C. 5 MG TAB PO PRN (16:19)
[2024-02-01] MEDS ORDERED: GLUCAGON 1 MG/VIAL IM PRN (16:54)
[2024-02-01] MEDS ORDERED: D10W 250 ML BAG IV PRN (16:54)
[2024-02-01] MEDS: ENOXAPARIN 40 MG/0.4 ML SQ SCH (17:20)
[2024-02-01] MEDS: ATORVASTATIN 80 MG TAB PO SCH (20:33)
[2024-02-01] MEDS: DOCUSATE NA/SENNA CONC 1 TAB PO SCH (20:33)
[2024-02-01] MEDS: HYDROCORTISONE 1 % CREAM 30GM TOP SCH (20:45)
[2024-02-01] MEDS ORDERED: INSULIN REGULAR (HUMAN) 100 UNIT/ML SQ SCH (21:00)
[2024-02-01] MEDS ORDERED: ATORVASTATIN 20 MG TAB PO SCH (21:00)
[2024-02-02 03:59] LABS: Absolute Eosinophils 0.5 K/uL (0-0.5); Absolute Lymphocytes (CBC) 1.2 K/uL (0.7-4.9); Absolute Monocytes 0.8 K/uL (0.1-1.3); Absolute Neutrophil 6.2 K/uL (1.8-8.0); Basophils % 0.4 % (0-1.3); Eosinophils % 6.1 % (0-4.4); Hematocrit 33.1 % (39.6-49.0); Hemoglobin 11.3 g/dL (13.6-17.9); Lymphocytes % 13.6 % (15.3-44.8); MCH 31.9 pg (27.0-35.0); MPV 9.9 fL (7.6-11.3); Neutrophils % 70.9 % (41.7-73.7); Nucleated Red Blood Cells % 0.1 % (0-0); Platelets 175 thou/uL (152-406); RBC Red Blood Cell Count 3.53 M/uL (4.33-5.43); Red Cell Distribution Width 13.7 % (12.1-15.2)
[2024-02-02 04:21] LABS: Albumin 3.1 g/dL (3.4-5.0); Anion Gap 7.1 mEq/L (5.0-15.0); Magnesium 2.7 mg/dL (1.6-2.4); Potassium 4.1 mEq/L (3.5-5.1); Prealbumin 15.3 mg/dL (20-40)
[2024-02-02] MEDS: AMLODIPINE 5 MG TAB PO SCH (08:00)
[2024-02-02] MEDS: ASPIRIN 81 MG CHEWABLE TABLET PO SCH (08:00)
[2024-02-02] MEDS: LOSARTAN POTASSIUM 50 MG TABLET PO SCH (08:00)
[2024-02-02] MEDS: SERTRALINE HCL 50 MG TAB PO SCH (08:00)
[2024-02-02] MEDS ORDERED: AMLODIPINE 5 MG TAB PO SCH (08:00)
--- NOTE | 2024-02-02 13:24 | P.RH.PN ---
Estimated Length of Stay: 14 Expected Discharge Date: 02/15/24 Discharge Disposition Plan: Home Family Support: Yes Vital Signs: Last Vital Signs Temp 97 F 02/02/24 08:00 Pulse 55 02/02/24 08:00 Resp 15 02/02/24 08:00 BP 126/68 02/02/24 08:00 Pulse Ox 97 02/02/24 08:00 Laboratory: Laboratory Last Values WBC 8.70 thou/uL (4.3-10.9) 02/02/24 03:33 RBC 3.53 M/uL (4.33-5.43) L 02/02/24 03:33 Hgb 11.3 g/dL (13.6-17.9) L 02/02/24 03:33 Hct 33.1 % (39.6-49.0) L 02/02/24 03:33 MCV 94.0 fL (80-100) 02/02/24 03:33 MCH 31.9 pg (27.0-35.0) 02/02/24 03:33 MCHC 34.0 g/dL (32.0-36.0) 02/02/24 03:33 RDW 13.7 % (12.1-15.2) 02/02/24 03:33 Plt Count 175 thou/uL (152-406) 02/02/24 03:33 MPV 9.9 fL (7.6-11.3) 02/02/24 03:33 Neutrophils % 70.9 % (41.7-73.7) 02/02/24 03:33 Lymphocytes % 13.6 % (15.3-44.8) L 02/02/24 03:33 Monocytes % 9.0 % (3.3-12.3) 02/02/24 03:33 Eosinophils % 6.1 % (0-4.4) H 02/02/24 03:33 Basophils % 0.4 % (0-1.3) 02/02/24 03:33 Absolute Neutrophils 6.2 K/uL (1.8-8.0) 02/02/24 03:33 Absolute Lymphocytes 1.2 K/uL (0.7-4.9) 02/02/24 03:33 Absolute Monocytes 0.8 K/uL (0.1-1.3) 02/02/24 03:33 Absolute Eosinophils 0.5 K/uL (0-0.5) 02/02/24 03:33 Absolute Basophils 0.0 K/uL (0-0.5) 02/02/24 03:33 Sodium 139 mEq/L (136-145) 02/02/24 03:33 Potassium 4.1 mEq/L (3.5-5.1) 02/02/24 03:33 Chloride 110 mEq/L (98-107) H 02/02/24 03:33 Carbon Dioxide 26 mEq/L (21-32) 02/02/24 03:33 Anion Gap 7.1 mEq/L (5.0-15.0) 02/02/24 03:33 BUN 52 mg/dL (7-18) H 02/02/24 03:33 Creatinine 1.67 mg/dL (0.70-1.30) H 02/02/24 03:33 Est GFR (CKD-EPI) 45 ml/min (=/>90) L 02/02/24 03:33 Glucose 118 mg/dL (74-106) H 02/02/24 03:33 POC Glucose 118 mg/dL (65-120) 02/01/24 17:11 Calcium 8.8 mg/dL (8.5-10.1) 02/02/24 03:33 Magnesium 2.7 mg/dL (1.6-2.4) H 02/02/24 03:33 Albumin 3.1 g/dL (3.4-5.0) L 02/02/24 03:33 Prealbumin 15.3 mg/dL (20-40) L 02/02/24 03:33 Weight: 178 lb Wound Present: No Closed Surgical Incision Present: No Negative Pressure Wound Therapy Present: No Physician Update: His labs were reviewed and are stable. He has marked left sided weakness with expressive aphasia. Summary: Patient's care plan and prison goals have been reviewed and revised as necessary. Please see the Rehabilitation Signature page for all necessary signatures.
[2024-02-02] MEDS: HYDROCORTISONE 1 % CREAM 30GM TOP PRN (20:24)
--- NOTE | 2024-02-03 02:06 | HP ---
Date of Admission: 02/01/2024 Time Of Service: 1:10 p.m. Chief Complaint: The patient has limited communication, but can give thumbs up and follow simple ins tructions, and able to through family report stroke. History Of Present Illness: Mr. Euceda is a 68-year-old patient with hypertension, who developed sudden-onset left leg and arm weakness with inability to communicate on 01/26/2024. He came to [facility] within the window for TNKs and received intravenous TNKs. His angiogram imaging ident ified an acute occlusion in the right anterior cerebral artery. Following TNKs, he was life flighted to [facility] for higher level of care. While en route, he became hypotensi ve, requiring fluid boluses. On arrival, he did undergo thrombectomy following Interventional Neuror adiology evaluation. The patient also was recommended to have a loop monitor to rule out atrial fibr illation. Since his surgery, he has significant residual deficits of left arm and leg weakness with very little functional movement except in the left index finger and thumb. He is able to swallow mul tiple consistencies, but will still be re-evaluated for that while in rehabilitation. He does requir e significant monitoring to prevent worsening complications such as deep vein thrombosis and pulmonar y embolus, and hemorrhagic conversion of his stroke. 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 Since the stroke, he is completely dep endent for activities of daily living, mobilization, and sit to person transfer and even with bed mob ility. One potential sequela of his stroke is rhythmic jerking of the left upper extremity, but no f rank seizure activity in terms of the generalized nature type. He is therefore in the rehabilitation unit for aggressive physical, occupational, and speech therapy along with medical management, Manager Process evaluation for discharge planning, and physician evaluation. Past Medical History: Hypertension, dyslipidemia. Imaging: Right ANGELI territory infarct on CT scan of his head. Allergies: NO KNOWN DRUG ALLERGIES. Medications: Amlodipine 5 mg daily, aspirin 81 mg daily, Lipitor 80 mg at bedtime, Lovenox 40 mg sub cutaneously daily, Cozaar 100 mg daily, Senokot S 1 at bedtime, Zoloft 50 mg daily, and topical hydro cortisone cream 1% three times daily as needed. Social History: No recent alcohol, tobacco, or IV drug use. Review of Systems: Difficult to fully appreciate as the patient has some significant difficulty with his expression, abl e to give thumbs up. Through the communication, denied any chest pain, any shortness of breath, any fevers, myalgias, arthralgias. No recent psychiatric issues. No other positives on the systems revi ew. Current Level Of Functioning: For his eating, he is at supervision. Oral hygiene, setup assistance. For toilet hygiene, he is dependent. His showering, upper and lower body dressing, donning and dof fing footwear, all dependent. Rolling from right to left, left to right, maximal assistance. Sit to lying and lying to sitting, and sitting to standing all dependent. Transfer from bed to chair to to ilet, all dependent. Ambulation, not ambulated. At this point, unable to stand and ambulate in any safe manner currently. Laboratory Studies: White blood cell count 8.7, hemoglobin 11.3, platelets 175. Sodium 139, potassi um 4.1, chloride 110, carbon dioxide 26, BUN 52, creatinine 1.67, glucose 118. Calcium 8.8, magnesiu m 2.7, albumin 3.1, prealbumin 15.3. X-ray/imaging: As noted previously with ANGELI stroke affecting the frontal region on the right side. Rehabilitation And Medical Assessment And Plan: Mr. Euceda is a 68-year-old patient in the rehabi litation unit with impairment category 01, stroke. His impairment group code is 01.1, left body invo lvement, right brain. 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 Comorbidities are anemia, decreased physical functioning, decreased mobility, dyslipidemia, hypertension, left hem iparesis with hyperglycemia. He has an elevated BUN, low CO2. Plan: He will have physical, occupational, and speech therapy for 3.5 hours, 5 of 7 days. We will c carissa Norvasc and Cozaar for hypertension management. Continue aspirin for stroke risk reduction. Continue Lipitor for dyslipidemia. Continue Lovenox for DVT prophylaxis. Hydrocortisone for any ar eas of itching. Zoloft for insomnia. Senna S for constipation. Comorbidities That Are Impacting Rehabilitation: Noted he does have a dense paresis of the left uppe r and lower extremities, and some expressive aphasia. Comprehends very well, so the ability to expre ss himself is somewhat limited. He uses 1 or 2 words. Physical Examination: Vital Signs: Blood pressure 126/68, pulse of 55, respiratory rate 15, temperature 97, oxygen saturat ion 97%. General: Mr. Euceda is lying in his bed. He does have dense paresis noted on the left upper and lower extremities. HEENT: Otherwise, he is normocephalic, atraumatic. Sclerae anicteric. Oropharynx pink and moist. Neck: Supple. Chest: Clear. Heart: Regular. Extremities: No significant edema or cyanosis noted. Neurological: His ability to express himself is significantly limited, but he comprehends speech gokul y well, may produce 1 or 2 words sometimes without direct responses to the questions and speech appea rs tangential. In terms of his strength, in the left upper extremity, 0 movement proximally and dist ally. Only movement noted in the thumb and index fingers, and it is around 2 to 3. His lower extrem ity: No movement noted there. Sensation decreased, left upper and lower compared to right upper and lower. He does have increased tone on the left side compared to the right side. Again, he will be ambulated with the therapist. Rehab Specific Plan: Mr. Euceda will have physical, occupational, and speech therapy for 3.5 hour s, 5 of 7 days to improve his ability to transfer from bed to chair to toilet, perform showering, to mobilize with a wheelchair 250 feet. He may be able to ambulate household distances with a platform or perhaps a right-handed quad cane depending on how he does. He is not likely to be able to go up a nd down steps. In terms of wheelchair mobilization, he is anticipated to be able to do 250 feet usin g his right upper and lower extremities. He should be, with speech, able to handle all consistencies depending on how he is doing, which at this point it was noted that the patient was put on an unrest ricted diet, but the speech pathologist will be fully evaluating him and making appropriate correctio ns. If need be, he will have assistance from the Pulmonary Service, Cardiology Service, and Hospital ist Service. Mr. Euceda and family have a good understanding of the process of admission to the inpatient rehab ilitation facility and how he will benefit from physical, occupational, speech therapy. If need be, additional services will be consulted as noted. Given his complex medical condition and risk of furt her complications, rehabilitation cannot be safely or effectively performed at a lower level facility such as prison. Barriers To Discharge: He has dense paresis and will likely require significant help before he is di scharged home. The family may have to have FMLA papers filled as his may be able to take time o ff from work to assist him at home and he will likely require Home Health to continue with all discip lines. Length Of Stay: About perhaps up to 21 days. Disposition: Again, home with Home Health and family's help. Prognosis: Fair. Rehabilitation Goals: 1.To require minimum assistance for upper and lower body dressing, donning and doffing of shoes, abl e to transfer from bed to chair to toilet to be able to perform showering and toileting. 2.Min assist potentially for the ability to ambulate at least 50 feet hospital distances with a righ t-sided quad cane. 3.Able to propel a wheelchair 250 feet with his right upper and lower extremities. 4.He may not be able to go up and down steps by discharge. 5.To perform cognitive functioning with supervision for his ability to express himself when his comp rehension is much better. The goals, as stated, were discussed with Mr. Euceda, and he and family are in agreement. By signing this document, I acknowledge I have personally performed a full physical examination on Mr Andrea Euceda no later than 24 hours after his admission to the inpatient rehabilitation facility and d etermined that he is able to tolerate the above course of treatment at an intensive level for a perio d of time. A detailed individualized plan of care for him will be completed by hospital day 4 based on the preadmission screen, history an d physical, and therapy evaluations. SHERRY/RODNEY Voice ID: [id number]
[2024-02-03] MEDS: DOCUSATE NA/SENNA CONC 1 TAB PO SCH (09:27)
[2024-02-03] MEDS: BISACODYL 10 MG RECTAL SUPP PR PRN (14:49)
--- NOTE | 2024-02-03 19:39 | P.PN ---
Subjective Date of Service: 02/03/24 Patient has no new complaint. Patient is tolerating minced and moist diet. Physical Examination - Vital Signs Temperature: 96.8 F Blood Pressure: 146/72 Pulse: 59 Respirations: 15 Pulse Ox (%): 98 Assessment And Plan - Plan Physical examination General: Alert and oriented x3, NAD, HEENT: Conjunctiva not pale, anicteric sclera Neck: Supple, no elevated JVD Heart: Heart sounds 1 and 2 normal, regular rhythm, normal rate, no pedal edema Lungs: Clear to auscultation bilaterally, adequate breath sounds bilaterally, no rhonchi or crackles. Abdomen: Soft, nondistended, nontender, normal bowel sounds. Extremities: No tenderness, no deformity Skin: Normal skin turgor, no rash, no nodules or ulcers. Neuro: Aphasia, left-sided weakness. Psychiatry: No agitation. Progress Made With Physical And Occupational Therapy: Patient completed bed mobility with total dependence, completed sitting on EOB with Max A to Max A x 2. Patient completed multiple pivot transfers with total dependence. Patient completed positioning in wheelchair with Max A x 2 Patient propelled with Max A for 50' x 3. Overall patient is making some progress with therapy, able to propel himself with a wheelchair today though with maximum assist. Assessment and plan Mr. 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 Comorbidities are anemia, decreased physical functioning, decreased mobility, dyslipidemia, hypertension, left hemiparesis with hyperglycemia. He has an elevated BUN, low CO2. Plan: Continue physical, occupational, and speech therapy for 3.5 hours, 5 of 7 days. We will continue Norvasc and Cozaar for hypertension. Continue aspirin for stroke risk reduction. Continue Lipitor for dyslipidemia. Lovenox for DVT prophylaxis. Hydrocortisone for any areas Zoloft for depression and insomnia. Senna S for constipation. Nephrology consult for ADALBERTO. Will hold losartan and manage blood pressure with amlodipine for now. Briefly hydrated with IV fluids Monitor renal function. Comorbidities That Are Impacting Rehabilitation: Left hemiparesis, and expressive aphasia.
[2024-02-03] MEDS: NA CHLORIDE 0.9% 1,000 ML IV SCH (20:46)
[2024-02-03] MEDS: ENSURE ENLIVE 237 ML CAN PO SCH (20:58)
[2024-02-04 03:58] LABS: Albumin 2.8 g/dL (3.4-5.0); Anion Gap 5.8 mEq/L (5.0-15.0); Phosphorus 3.1 mg/dL (2.5-4.9); Potassium 3.8 mEq/L (3.5-5.1)
[2024-02-04 05:28] LABS: Specific Gravity 1.019 (1.005-1.030); Sqamous Epithelial <5 /HPF (None Seen); Urine Bacteria None Seen /HPF (<20); Urine Bilirubin NEGATIVE (Negative); Urine Blood Negative (Negative); Urine Clarity Clear (Clear); Urine Color Light-Yellow (Yellow); Urine Culture Reflex Order NOT NEEDED; Urine Glucose NEGATIVE (Negative); Urine Ketones NEGATIVE (Negative); Urine Micro Reflex YN NO BILL MICROSCOPIC; Urine Mucus Slight /HPF (None Seen); Urine Nitrite NEGATIVE (Negative); Urine Protein NEGATIVE (Negative); Urine RBC <5 /HPF (None Seen); Urine Urobilinogen Normal (Normal); Urine WBC <5 /HPF (<5); Urine pH 5.5 (5.0-7.0)
[2024-02-04] MEDS: AMLODIPINE 5 MG TAB PO SCH (08:40)
--- NOTE | 2024-02-04 18:47 | P.PN ---
Subjective Date of Service: 02/04/24 Patient has no new complaint. No issues overnight. Physical Examination - Vital Signs Temperature: 97.2 F Blood Pressure: 140/80 Pulse: 60 Respirations: 18 Pulse Ox (%): 95 - Studies Laboratory Data (last 24 hrs) 02/04/24 03:08 Sodium 142 Potassium 3.8 BUN 39 H Creatinine 1.12 Glucose 117 H Phosphorus 3.1 Assessment And Plan - Plan Physical examination General: Alert and oriented x3, NAD, HEENT: Conjunctiva not pale, anicteric sclera Neck: Supple, no elevated JVD Heart: Heart sounds 1 and 2 normal, regular rhythm, normal rate, no pedal edema Lungs: Clear to auscultation bilaterally, adequate breath sounds bilaterally, no rhonchi or crackles. Abdomen: Soft, nondistended, nontender, normal bowel sounds. Extremities: No tenderness, no deformity Skin: Normal skin turgor, no rash, no nodules or ulcers. Neuro: Aphasia, left-sided weakness. Psychiatry: No agitation. Progress Made With Physical And Occupational Therapy: Patient able to accounts receivable coordinator Milly Plus for ~20 min to weight bear and stimulate muscle act. Patient was able to hold weight and have control of B Knees while in stander. Patient was weight bearing and using L hand to senior payroll manager handle and open/close thumb and index finger. Patient performed W/C Mobility 1 X 250' with Mod A and VC's for manuevering and getting over thresholds. Patient was able to start proccessing proper way to steer and make turns but still needed help to exacute. Overall patient is making gradual progress with therapy. Assessment and plan Mr. 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 Comorbidities are anemia, decreased physical functioning, decreased mobility, dyslipidemia, hypertension, left hemiparesis with hyperglycemia. He has an elevated BUN, low CO2. Plan: Continue physical, occupational, and speech therapy for 3.5 hours, 5 of 7 days. We will continue Norvasc and Cozaar for hypertension. Continue aspirin. Continue Lipitor for dyslipidemia. Lovenox for DVT prophylaxis. Hydrocortisone for any areas Zoloft for depression and insomnia. Senna S for constipation. ADALBERTO resolved with IV hydration. Resume losartan, Continue amlodipine Monitor renal function Nephrology consulted to evaluate Comorbidities That Are Impacting Rehabilitation: Left hemiparesis, and expressive aphasia.
--- NOTE | 2024-02-05 02:21 | CON ---
Date of Consultation: 02/04/2024 Chief Complaint: Acute on chronic kidney injury. History Of Present Illness: The patient has multiple medical problems. He is admitted to rehabilitation floor. He is a 68-year-old man with history of hypertension. He developed sudden onset of left leg and arm weakness with inability to communicate . He came to [facility] and received intravenous TNK. His angiogram imaging identified an acute occlusion in the right anterior cerebral artery. Following TNK, he was life flighted to [facility] for higher level of care. While en route, he became hypotensive, requiring fluid bolus. On arrival, he did undergo thrombectomy following Interventional Neuro-Radiology evaluation. The patient was recommended to have a monitor to rule out atrial fibrillation. Since his surgery, he has significant residual deficit of the left arm and left weakness with very little functional movement in the left index finger and thumb. The patient is under the care of Neurology and Primary team. Nephrology consultation was requested for abnormal renal function test. Past Medical History: Hypertension, dyslipidemia, CVA. He has right ANGELI territory infarct on CT scan of the head. Medications: Please see the current list. Social History: No recent alcohol, tobacco, or illicit drugs. Review of Systems: The patient cannot provide review of systems. Physical Examination: General: He is awake, although, and follows commands. Eyes: Anicteric sclerae. EOMI. Ears, Nose, Mouth, and Throat: Oral mucosa moist. No pallor. Neck: Supple. No bruits. Lungs: Diminished breath sounds at bases. Heart: S1, S2. Abdomen: Soft. Extremities: No clubbing. No cyanosis. Laboratory Work: On January 25, this year, BUN was 18, creatinine 1.08. Estimated GFR 75%. On February 01, renal function has declined; BUN was 52 and creatinine 1.67. Sodium 139, potassium 4.1, chloride 110, CO2 26, anion gap 7.1, glucose 118. Magnesium 2.7. Albumin 3.1. Impression And Plan: Acute on chronic kidney injury. Today, blood work showed BUN 39 and creatinine 1.12. Electrolytes as follows: Sodium 142, potassium 3.8, chloride 114, CO2 26, calcium 8.6, phosphorus 3.1. The patient developed acute on chronic kidney injury due to prerenal azotemia, although renal function is improving. There is still high BUN and creatinine ratio. Urinalysis done on January visit did not show any acute sediment changes. There is no hematuria. No leukocyturia. Specific gravity is 1.019. Plan is to monitor electrolytes and renal panel. Continue adequate hydration by mouth. Plan is to check renal ultrasound to rule out obstructive uropathy. Urinalysis did not show proteinuria. The patient does not have nephritis. Acute kidney injury was due to fluctuating blood pressure. The patient became hypotensive and he was treated with IV fluids. Currently, he can continue p.o. fluids as tolerated. Plan is to avoid nonsteroidal anti-inflammatory medication in view of recent worsening of the renal function. APARNA/MODPhyllis Voice ID: [id number] Report ID: [id number] MTDD
--- NOTE | 2024-02-05 07:11 | RAD REPORT ---
EXAM DESCRIPTION: US - Renal Ultrasound-Complete - 02/05/2024 6:15 am CLINICAL HISTORY: miriam COMPARISON: No comparisons FINDINGS: Both kidneys are normal in size, shape and echotexture. The right kidney measures 11.3 cm. No hydronephrosis, focal mass or perinephric fluid. The left kidney measures 10.2 cm. 10 mm cyst at the lower pole left kidney. No hydronephrosis. The bladder is decompressed. IMPRESSION: No evidence of hydronephrosis. Small left lower pole renal cyst.
[2024-02-05] MEDS: LOSARTAN POTASSIUM 50 MG TABLET PO SCH (11:15)
--- NOTE | 2024-02-05 14:07 | P.PN ---
Subjective Date of Service: 02/05/24 Subjective no overnight events Stable VS Cr down to 1.0 physical exam General: awake and alert Neck: Supple. No elevated JVD. Heart: Regular rate and rhythm. Normal S1, S2. Chest: Clear to auscultation bilaterally. No rales or wheezes. , bruises around catheter site Abdomen: Soft and non-tender. Extremities: no edema . Lt sided weakness A/p A 68 Y/o man with PMhx of HTN , had CVA , S/p thrombectomy , admitted for PT/OT, had ADALBERTO , peak Cr 1.6, improved to 1.0 om IVF #ADALBERTO likely due to dehydration cr down to 1.0 renal US : no hydronephrosis renal dose meds cont losartan #HTN BP controlled Cont Hydralzine and losartan low salt diet #CVA cont statin and ASA #debility PT/OT Physical Examination - Vital Signs Temperature: 98.1 F Blood Pressure: 154/81 Pulse: 65 Respirations: 16 Pulse Ox (%): 97
--- NOTE | 2024-02-05 20:01 | RAD REPORT ---
EXAM DESCRIPTION: RAD - Chest Single View - 02/05/2024 7:35 pm CLINICAL HISTORY: cough COMPARISON: Chest Single View dated 01/26/2024 FINDINGS: Lines: None. Lungs: No evidence of edema or pneumonia. Pleural: No significant pleural effusions or pneumothorax. Cardiac: Similar size and configuration. Mediastinum: Within normal limits. Bones: No acute fractures. Other: None IMPRESSION: No acute cardiopulmonary disease.
[2024-02-06 07:40] LABS: Absolute Basophils 0.1 K/uL (0-0.5); Absolute Eosinophils 0.1 K/uL (0-0.5); Absolute Lymphocytes (CBC) 0.7 K/uL (0.7-4.9); Absolute Monocytes 1.1 K/uL (0.1-1.3); Absolute Neutrophil 14.8 K/uL (1.8-8.0); Basophils % 0.3 % (0-1.3); Eosinophils % 0.6 % (0-4.4); Hematocrit 31.7 % (39.6-49.0); Lymphocytes % 4.2 % (15.3-44.8); MCHC 34.6 g/dL (32.0-36.0); MCV 92.5 fL (80-100); MPV 10.7 fL (7.6-11.3); Monocytes % 6.6 % (3.3-12.3); Neutrophils % 88.3 % (41.7-73.7); Nucleated Red Blood Cells % 0.1 % (0-0); Platelets 185 thou/uL (152-406); RBC Red Blood Cell Count 3.43 M/uL (4.33-5.43); Red Cell Distribution Width 13.1 % (12.1-15.2)
[2024-02-06 07:49] LABS: Anion Gap 8.8 mEq/L (5.0-15.0); Potassium 3.8 mEq/L (3.5-5.1)
[2024-02-06 08:51] LABS: Blood Morphology Comment NOTED (NOT SEEN); Platelet Estimate ADEQ; Spherocyte 1+; White Blood Cell Scan OK (OK)
[2024-02-06] MEDS: AMLODIPINE 10 MG TAB PO SCH (10:24)
[2024-02-06] MEDS: CEFTRIAXONE 1,000 MG in NA CHLORIDE 0.9% 50 ML IVPB ONE (13:03)
[2024-02-06] MEDS: ACETAMINOPHEN 500 MG TAB PO PRN (13:08)
[2024-02-06] MEDS: VANCOMYCIN 2 GM in NA CHLORIDE 0.9% 500 ML IVPB ONE (15:44)
[2024-02-06 16:06] LABS: Specific Gravity 1.019 (1.005-1.030); Sqamous Epithelial <5 /HPF (None Seen); Urine Bacteria <20 /HPF (<20); Urine Bilirubin NEGATIVE (Negative); Urine Blood 1+ (Negative); Urine Clarity Extremely Turbid (Clear); Urine Color Yellow (Yellow); Urine Culture Reflex Order REFLEXED; Urine Glucose NEGATIVE (Negative); Urine Ketones NEGATIVE (Negative); Urine Microscopic Reflex YN ORDER UMIC; Urine Mucus Slight /HPF (None Seen); Urine Nitrite NEGATIVE (Negative); Urine Protein 1+ (Negative); Urine Urobilinogen Normal (Normal); Urine WBC >50 /HPF (<5); Urine WBC Clump Few /HPF (None Seen); Urine pH 5.5 (5.0-7.0)
--- NOTE | 2024-02-06 18:06 | P.PN ---
Subjective Date of Service: 02/06/24 Patient had an episode of low-grade fever yesterday, and fever up to 101 today. Physical Examination - Vital Signs Temperature: 98.4 F Blood Pressure: 125/58 Pulse: 83 Respirations: 18 Pulse Ox (%): 93 - Studies Laboratory Data (last 24 hrs) 02/06/24 02/06/24 07:15 07:15 WBC 16.70 H Hgb 11.0 L Hct 31.7 L Plt Count 185 Sodium 139 Potassium 3.8 BUN 25 H Creatinine 1.14 Glucose 130 H Assessment And Plan - Plan Physical examination General: Alert and oriented x3, NAD, HEENT: Conjunctiva not pale, anicteric sclera Neck: Supple, no elevated JVD Heart: Heart sounds 1 and 2 normal, regular rhythm, normal rate, no pedal edema Lungs: Clear to auscultation bilaterally, adequate breath sounds bilaterally, no rhonchi or crackles. Abdomen: Soft, nondistended, nontender, normal bowel sounds. Extremities: No tenderness, no deformity Skin: Normal skin turgor, no rash, no nodules or ulcers. Neuro: Aphasia, left-sided weakness. Psychiatry: No agitation. Labs reviewed: Urinalysis suggest UTI. Chest x-ray reviewed: No acute infiltrate Assessment and plan Mr. 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 Comorbidities are anemia, decreased physical functioning, decreased mobility, dyslipidemia, hypertension, left hemiparesis with hyperglycemia. He has an elevated BUN. Diagnosis: Sepsis Acute cystitis without hematuria ADALBERTO Plan: Normal lactate. IV Rocephin and vancomycin. Blood cultures obtained. Follow cultures-blood and urine. Supportive measures-antipyretics as needed. Stable blood pressure. Hold antihypertensives given sepsis Continue physical, occupational, and speech therapy for 3.5 hours, 5 of 7 days. We will Continue aspirin. Continue Lipitor for dyslipidemia. Lovenox for DVT prophylaxis. Hydrocortisone for any areas Zoloft for depression and insomnia. Senna S for constipation. ADALBERTO resolved with IV hydration. Nephrology is following Monitor renal function
[2024-02-07 04:12] LABS: Absolute Basophils 0.1 K/uL (0-0.5); Absolute Eosinophils 0.1 K/uL (0-0.5); Absolute Lymphocytes (CBC) 0.9 K/uL (0.7-4.9); Absolute Monocytes 1.1 K/uL (0.1-1.3); Absolute Neutrophil 14.4 K/uL (1.8-8.0); Basophils % 0.4 % (0-1.3); Eosinophils % 0.5 % (0-4.4); Hematocrit 30.7 % (39.6-49.0); Hemoglobin 10.7 g/dL (13.6-17.9); Lymphocytes % 5.1 % (15.3-44.8); MCH 31.9 pg (27.0-35.0); MCHC 34.7 g/dL (32.0-36.0); MCV 91.9 fL (80-100); MPV 11.1 fL (7.6-11.3); Monocytes % 6.9 % (3.3-12.3); Platelets 156 thou/uL (152-406); RBC Red Blood Cell Count 3.34 M/uL (4.33-5.43); Red Cell Distribution Width 13.2 % (12.1-15.2)
[2024-02-07 04:13] LABS: Neutrophils % 87.1 % (41.7-73.7)
[2024-02-07 04:15] LABS: Anion Gap 9.6 mEq/L (5.0-15.0); Potassium 3.6 mEq/L (3.5-5.1)
[2024-02-07] MEDS: HYDROCORTISONE 1 % CREAM 30GM TOP PRN (07:12)
[2024-02-07] MEDS: CEFTRIAXONE 1,000 MG in NA CHLORIDE 0.9% 50 ML IVPB SCH (07:16)
[2024-02-07] MEDS: VANCOMYCIN 1.5 GM in NA CHLORIDE 0.9% 500 ML IVPB SCH (09:12)
--- NOTE | 2024-02-07 17:50 | P.PN ---
Subjective Date of Service: 02/07/24 No fever today. Family report patient has poor appetite. He did participate in physical therapy today. Physical Examination - Vital Signs Temperature: 98.5 F Blood Pressure: 130/69 Pulse: 75 Respirations: 17 Pulse Ox (%): 95 - Studies Laboratory Data (last 24 hrs) 02/07/24 02/07/24 03:28 03:28 WBC 16.60 H Hgb 10.7 L Hct 30.7 L Plt Count 156 Sodium 139 Potassium 3.6 BUN 26 H Creatinine 1.07 Glucose 135 H Assessment And Plan - Plan Physical examination General: Alert and oriented x2, NAD, HEENT: Conjunctiva not pale, anicteric sclera Neck: Supple, no elevated JVD Heart: Heart sounds 1 and 2 normal, regular rhythm, normal rate, no pedal edema Lungs: Clear to auscultation bilaterally, adequate breath sounds bilaterally, no rhonchi or crackles. Abdomen: Soft, nondistended, nontender, normal bowel sounds. Extremities: No tenderness, no deformity Skin: Normal skin turgor, no rash, no nodules or ulcers. Neuro: Aphasia, left-sided weakness. Psychiatry: No agitation. Labs reviewed: Urinalysis suggest UTI. Chest x-ray reviewed: No acute infiltrate. Progress Made With Physical And Occupational Therapy: Patient completed supine<>sit with assist provided for legs. Overall patient needed maximum assistance. Patient worked with PT on wheelchair training.. Patient was able to wheel for 150' with moderate to maximum assist. He was still unable to coordinate steering wc with foot while pushing. Overall patient is making gradual progress with therapy. Assessment and plan Mr. 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 Comorbidities are anemia, decreased physical functioning, decreased mobility, dyslipidemia, hypertension, left hemiparesis with hyperglycemia. He has an elevated BUN. Diagnosis: Sepsis Acute cystitis without hematuria ADALBERTO Loss of appetite Plan: Continue physical, occupational, and speech therapy for 3.5 hours, 5 of 7 days. Continue aspirin. Continue Lipitor for dyslipidemia. Blood cultures: No growth. Urine culture shows gram-negative rods. IV Rocephin for 1 more day and transition to oral antibiotics based on sensitivity. Loss of appetite likely related to the UTI. Change sertraline to Remeron which may improve his appetite and his mood. Patient has been normotensive. Hold antihypertensives for now. Lovenox for DVT prophylaxis. Hydrocortisone for any areas Senna S for constipation. ADALBERTO resolved with IV hydration. Monitor renal function Nephrology is following.
[2024-02-07] MEDS: MIRTAZAPINE 15 MG TAB PO SCH (20:49)
[2024-02-07] MEDS: DOCUSATE NA/SENNA CONC 1 TAB PO PRN (20:49)
[2024-02-08 02:38] LABS: Absolute Eosinophils 0.4 K/uL (0-0.5); Absolute Lymphocytes (CBC) 1.3 K/uL (0.7-4.9); Absolute Monocytes 1.2 K/uL (0.1-1.3); Absolute Neutrophil 11.2 K/uL (1.8-8.0); Basophils % 0.3 % (0-1.3); Eosinophils % 2.5 % (0-4.4); Hematocrit 29.5 % (39.6-49.0); Hemoglobin 9.8 g/dL (13.6-17.9); Lymphocytes % 9.1 % (15.3-44.8); MCH 31.1 pg (27.0-35.0); MCHC 33.2 g/dL (32.0-36.0); MCV 93.7 fL (80-100); MPV 11.9 fL (7.6-11.3); Monocytes % 8.8 % (3.3-12.3); Neutrophils % 79.3 % (41.7-73.7); Platelets 151 thou/uL (152-406); RBC Red Blood Cell Count 3.15 M/uL (4.33-5.43); Red Cell Distribution Width 13.6 % (12.1-15.2)
[2024-02-08 02:54] LABS: Anion Gap 8.5 mEq/L (5.0-15.0); Magnesium 2.1 mg/dL (1.6-2.4); Potassium 3.5 mEq/L (3.5-5.1)
--- NOTE | 2024-02-08 03:30 | PN ---
Date of Progress Note: 02/07/2024 Chief Complaint: Acute kidney injury. Review of Systems: The patient denies chest pain, palpitation. Physical Examination: Lungs: Clear to auscultation bilaterally. Heart: S1, S2. Abdomen: Soft. Extremities: Left-sided weakness. No edema. Assessment And Plan: 1.The patient is a -kxum-mos man with past history significant for hypertension acute kidney injury, peak creatinine . 2.Hypertension, . EB/MODL Voice ID: [id number] Report ID: [id number]
[2024-02-08 12:41] LABS: Abnormal Protein Band 1 REPORT; Albumin, (SPE) 3.2 g/dL (3.8-4.8); Alpha-1-Globulins 0.3 g/dL (0.2-0.3); Alpha-2-Globulins 0.9 g/dL (0.5-0.9); Beta 1 Globulin 0.4 g/dL (0.4-0.6); Gamma Globulins 0.6 g/dL (0.8-1.7); INTERPRETATION REPORT; Total Protein 5.9 g/dL (6.1-8.1)
--- NOTE | 2024-02-08 23:33 | PN ---
Date of Progress Note: 02/08/2024 Time Of Service: 1:10 p.m. Subjective: Mr. Euceda is resting in bed. He is feeling better about his therapy. Family is at the bedside. They had questions about how the stroke occurred, which involves the right anterior cer ebral artery producing some paresis on the left side with incoordination, especially in the legs, but he is actually happy about this progress in terms of recovery thus far. Objective: There is no fever, chills, nausea, vomiting, any myalgias, arthralgias except mildly on t he left side. No pain or other complaints. However, the patient does have some depressed mood, poor appetite, and the family did bring [employer] and he was eating that, but the patient and family we re advised about proper diet to reduce risk of stroke and myocardial infarction. They will consider changing his diet, but he will have at this point, more fruits, vegetables, and nuts included his t. Physical Examination: Vital Signs: Blood pressure 178/66, pulse 72, respiratory rate of 15, temperature 97.2, oxygen satur ation 97%. General: Mr. Euceda is resting in his bed between therapy sessions. HEENT: He is normocephalic, atraumatic. Sclerae anicteric. Oropharynx is moist. Neck: Supple. Chest: Clear. Heart: Regular. Extremities: No significant edema in the left upper extremity, weakness and numbness in the left low er extremity. No significant change in coordination noted in the left upper and lower extremity comp ared to the right side. Laboratory Studies: White blood cell count decreased to 14.1 from 16.6, neutrophils decreased from 8 7.1 to 79.3. Sodium 138, potassium 3.5, chloride 106, carbon dioxide 27, BUN 29, creatinine 1.04, gl ucose 114, calcium 8.8, magnesium 2.1. Note on the 7th, a random total urine protein was elevated to 46.0. Urinalysis on the 7th was greater than 500 esterase, 11 to 20 red blood cells, white blood ce lls greater than 50, few clumps of white blood cells, 1+ urine protein, extremely turbid, and urine b lood was 1+. He was on vancomycin with a trough today of 11.1. Medications: Tylenol 500 mg every 4 hours as needed for temperature greater than 100, Norvasc 100 mg daily, aspirin 81 mg daily, Lipitor 80 mg at bedtime, Dulcolax 10 mg per rectum. He is on Rocephin 1 g started on the for the urinary tract infection. He is receiving Eliquis 2.5 mg twice daily a nd Lovenox has been discontinued, Remeron 15 mg at bedtime, Ensure Enlive 237 mL twice daily, Senokot S 1 twice daily. X-ray/imaging: Chest x-ray on 02/04 showed no acute cardiopulmonary processes. Progress Made With Physical And Occupational Therapy: Today with physical therapy, completed bilater al lower extremity and upper extremity exercises with range of motion. He was in bed and agreeable t o physical therapy. At that time, the therapist came in, also he did mobilize a wheelchair 75 feet w ith moderate assistance and verbal cues. He was able to business planning manager the Olrrie lift for approximately 30 minutes, was able to weight bear to both upper extremities, [id number]-[id number] transfers done with total a ssistance, yhv-jz-hwpciqmtwa transfer with total assistance. With speech therapy, he demonstrated co mpletion of open-ended phrases and sentences with 100% accuracy. Maximum cues needed to increase vol ume during speech. He did have constraint induced by language issues. He was cooperative with the t herapist. Mr. Euceda is making slow progress overall with his recovery after stroke, especially the difficul ty with his ambulation, which is unable to do, transferring with maximal assistance to total assistan ce. Wheelchair mobilization is better and beginning to improve somewhat more with his speech and swa llowing is not an issue as he is doing well with that. Assessment: Mr. Euceda is a 68-year-old patient in the rehabilitation unit with right anterior ce rebral artery stroke, status post TNK intravenously without significant improvement in his left upper and lower extremity, arm and leg weakness, numbness, and incoordination, and he is however working f airly well with therapy. He does have preserved swallowing and comprehension and expression without significant deficits. His comorbidities are hypertension, dyslipidemia, poor appetite with depressio n, anxiety, and has had constipation and urinary tract infection with elevated white blood cell count on Rocephin. Plan: For dyslipidemia, continue Lipitor 80 mg at bedtime. Continue aspirin 81 mg daily for stroke risk reduction. Continue Norvasc 10 mg daily for hypertension. Continue with Remeron for insomnia. Continue Rocephin for urinary tract infection and again continue physical, occupational, and speech therapy for 3.5 hours, 5 of 7 days. Comorbidities That Are Impacting His Rehabilitation: The urinary tract infection has caused some mil d disorientation confusion which is improving. He is on Rocephin. Also, white blood cell count is i mproving and neutrophils are improving. We will continue with that. The patient will likely require significant help as he lives alone and his family were at the bedside including a daughter and siste r. However, he has no one permanently living with him and may have to consider alf steffen pineda on how he is recovering. SHERRY/RODNEY Voice ID: [id number] Report ID: [id number]
--- NOTE | 2024-02-09 04:33 | PN ---
Chief Complaint: Acute kidney injury. Review of Systems: Patient denies complaints. Physical Examination: Lungs: Clear to auscultation bilaterally. Heart: S1, S2. Abdomen: Soft. Extremities: Left-sided weakness. No edema. Assessment And Plan: 1.Patient has multiple medical problems and has history of hypertension. 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 Renal function has improved and serum creatinine is plateauing. The patient hang es lower urinary tract symptoms. The patient denies history of kidney stones. He does not have dysu loida or hematuria. Renal ultrasound was done to rule out hydronephrosis. 2.Hypertension. Continue current blood pressure medication. Monitor renal function. 3.Chronic kidney disease. Avoid nephrotoxic medication. Avoid nonsteroidal anti-inflammatory medic ation. APARNA/RODNEY Voice ID: [id number] Report ID: [id number]
[2024-02-09] MEDS: MEGESTROL 40 MG TAB PO SCH (07:19)
--- NOTE | 2024-02-09 13:30 | P.RH.PN ---
Estimated Length of Stay: 22 Expected Discharge Date: 02/21/24 Discharge Disposition Plan: Home Family Support: Yes Group Home Goal: Mobility, Transfers, Self Care Vital Signs: Last Vital Signs Temp 97.7 F 02/09/24 08:00 Pulse 63 02/09/24 08:00 Resp 18 02/09/24 08:00 BP 138/76 02/09/24 08:00 Pulse Ox 96 02/09/24 08:00 Laboratory: Laboratory Last Values WBC 14.10 thou/uL (4.3-10.9) H 02/08/24 02:01 RBC 3.15 M/uL (4.33-5.43) L 02/08/24 02:01 Hgb 9.8 g/dL (13.6-17.9) L D 02/08/24 02:01 Hct 29.5 % (39.6-49.0) L 02/08/24 02:01 MCV 93.7 fL (80-100) 02/08/24 02:01 MCH 31.1 pg (27.0-35.0) 02/08/24 02:01 MCHC 33.2 g/dL (32.0-36.0) 02/08/24 02:01 RDW 13.6 % (12.1-15.2) 02/08/24 02:01 Plt Count 151 thou/uL (152-406) L 02/08/24 02:01 MPV 11.9 fL (7.6-11.3) H 02/08/24 02:01 Neutrophils % 79.3 % (41.7-73.7) H 02/08/24 02:01 Lymphocytes % 9.1 % (15.3-44.8) L 02/08/24 02:01 Monocytes % 8.8 % (3.3-12.3) 02/08/24 02:01 Eosinophils % 2.5 % (0-4.4) 02/08/24 02:01 Basophils % 0.3 % (0-1.3) 02/08/24 02:01 Absolute Neutrophils 11.2 K/uL (1.8-8.0) H 02/08/24 02:01 Absolute Lymphocytes 1.3 K/uL (0.7-4.9) 02/08/24 02:01 Absolute Monocytes 1.2 K/uL (0.1-1.3) 02/08/24 02:01 Absolute Eosinophils 0.4 K/uL (0-0.5) 02/08/24 02:01 Absolute Basophils 0.0 K/uL (0-0.5) 02/08/24 02:01 Platelet Estimate Adeq 02/06/24 07:15 Spherocytes 1+ 02/06/24 07:15 Morphology Comment Noted (NOT SEEN) 02/06/24 07:15 Sodium 138 mEq/L (136-145) 02/08/24 02:01 Potassium 3.5 mEq/L (3.5-5.1) 02/08/24 02:01 Chloride 106 mEq/L (98-107) 02/08/24 02:01 Carbon Dioxide 27 mEq/L (21-32) 02/08/24 02:01 Anion Gap 8.5 mEq/L (5.0-15.0) 02/08/24 02:01 BUN 29 mg/dL (7-18) H 02/08/24 02:01 Creatinine 1.04 mg/dL (0.70-1.30) 02/08/24 02:01 Est GFR (CKD-EPI) 79 ml/min (=/>90) L 02/08/24 02:01 Glucose 114 mg/dL (74-106) H 02/08/24 02:01 POC Glucose 118 mg/dL (65-120) 02/01/24 17:11 Lactic Acid 1.0 mmol/L (0.4-2.0) 02/06/24 14:47 Calcium 8.8 mg/dL (8.5-10.1) 02/08/24 02:01 Phosphorus 3.1 mg/dL (2.5-4.9) 02/04/24 03:08 Magnesium 2.1 mg/dL (1.6-2.4) 02/08/24 02:01 Total Protein 5.9 g/dL (6.1-8.1) L 02/05/24 06:46 Albumin 3.2 g/dL (3.8-4.8) L 02/05/24 06:46 Prealbumin 15.3 mg/dL (20-40) L 02/02/24 03:33 Ynixu-4-Rhvbsntcc 0.3 g/dL (0.2-0.3) 02/05/24 06:46 Xxhvq-9-Mzwpgehvt 0.9 g/dL (0.5-0.9) 02/05/24 06:46 Gamma Globulins 0.6 g/dL (0.8-1.7) L 02/05/24 06:46 M-Jerry Report 02/05/24 06:46 M-Jerry 2 [employer]BER 02/05/24 06:46 Abnorm Protein Band 3 [employer]BER 02/05/24 06:46 PEP Interpretation Report H 02/05/24 06:46 Urine Color Yellow (Yellow) 02/06/24 15:00 Urine Clarity Extremely turbid (Clear) H 02/06/24 15:00 Urine pH 5.5 (5.0-7.0) 02/06/24 15:00 Ur Specific [place] 1.019 (1.005-1.030) 02/06/24 15:00 Glucose (UA)(Auto) Negative (Negative) 02/06/24 15:00 Urine Ketones Negative (Negative) 02/06/24 15:00 Urine Blood 1+ (Negative) H 02/06/24 15:00 Urine Nitrite Negative (Negative) 02/06/24 15:00 Urine Bilirubin Negative (Negative) 02/06/24 15:00 Urine Urobilinogen Normal (Normal) 02/06/24 15:00 Ur Leukocyte Esterase 500 Michelle/uL (Negative) H 02/06/24 15:00 Urine RBC 11-20 /HPF (None Seen) H 02/06/24 15:00 Urine WBC >50 /HPF (<5) H 02/06/24 15:00 Urine WBC Clumps Few /HPF (None Seen) H 02/06/24 15:00 Ur Squamous Epith Cells <5 /HPF (None Seen) 02/06/24 15:00 U Non-Squamous Epi Cells <5 /HPF (None Seen) 02/06/24 15:00 Urine Bacteria <20 /HPF (<20) 02/06/24 15:00 Hyaline Casts 0-5 /LPF (None Seen) 02/04/24 05:10 Urine Mucus Slight /HPF (None Seen) 02/06/24 15:00 Urine Culture Reflexed Reflexed 02/06/24 15:00 U Random Total Protein 46.0 mg/dL (<11.9) H 02/06/24 15:00 Urine Creatinine 208.0 mg/dL (20-370) 02/06/24 15:00 Urine Total Protein 1+ (Negative) H 02/06/24 15:00 Vancomycin Trough 11.1 mcg/mL (5.0-20.0) 02/08/24 02:01 Smear Scan Ok (OK) 02/06/24 07:15 Weight: 179 lb 3.2 oz Wound Present: No Closed Surgical Incision Present: No Negative Pressure Wound Therapy Present: No Physician Update: Improved WBC. He will be switched to Augmentin to complete 14 days for UTI. Still has left sided weakness with neglect. Will possible go to [facility]. BIMS 11, SLUMS 15, non fluent expressive aphasia. He lack initiation and problem solving with litting incite into his deficits. Max assist to stand up to 30 min. WC total assistance. Sat 10 seconds unassisted. No walking so far. Summary: Patient's care plan and snf goals have been reviewed and revised as necessary. Please see the Rehabilitation Signature page for all necessary signatures.
[2024-02-09] MEDS: DULOXETINE 30 MG CAP PO SCH (20:13)
[2024-02-09] MEDS: CRANBERRY FRUIT EXTRACT 200 MG CAP PO SCH (20:13)
[2024-02-09] MEDS: AMLODIPINE 5 MG TAB PO SCH (20:13)
[2024-02-09] MEDS: AMOX/K CLAV 875 MG TAB PO SCH (20:13)
[2024-02-10 04:08] LABS: Absolute Basophils 0.1 K/uL (0-0.5); Absolute Eosinophils 0.4 K/uL (0-0.5); Absolute Lymphocytes (CBC) 1.3 K/uL (0.7-4.9); Absolute Monocytes 0.6 K/uL (0.1-1.3); Absolute Neutrophil 4.2 K/uL (1.8-8.0); Basophils % 0.8 % (0-1.3); Eosinophils % 5.6 % (0-4.4); Hematocrit 27.6 % (39.6-49.0); Hemoglobin 9.3 g/dL (13.6-17.9); Lymphocytes % 20.2 % (15.3-44.8); MCH 31.5 pg (27.0-35.0); MCHC 33.8 g/dL (32.0-36.0); MPV 11.3 fL (7.6-11.3); Monocytes % 8.9 % (3.3-12.3); Neutrophils % 64.5 % (41.7-73.7); Nucleated Red Blood Cells % 0.1 % (0-0); Platelets 176 thou/uL (152-406); RBC Red Blood Cell Count 2.97 M/uL (4.33-5.43); Red Cell Distribution Width 13.2 % (12.1-15.2)
[2024-02-10 04:40] LABS: Anion Gap 8.2 mEq/L (5.0-15.0); Potassium 3.2 mEq/L (3.5-5.1)
[2024-02-10 04:44] LABS: Albumin 2.5 g/dL (3.4-5.0); Prealbumin 10.3 mg/dL (20-40)
--- NOTE | 2024-02-10 08:22 | PN ---
Date of Progress Note: 02/09/2024 Chief Complaint: Acute kidney injury. Subjective: The patient received dialysis. Renal function has improved. He is on Augmentin for uri nary tract infection. He denies lower urinary tract symptoms. Review of Systems: Constitutional: Denies fever, chills. Eyes: Denies vision changes. Ears, Nose, Mouth, and Throat: Denies sore throat or earache. Physical Examination: Lungs: Heart: S1, S2. Extremities: No edema. Assessment And Plan: 1.Acute on chronic kidney function has stabilized. There is prerenal azotemia. The sophie ent is tolerating p.o. intake, p.o. hydration. 2.Leukocytosis . 3.The patient is currently on vancomycin. Monitor renal function. Vancomycin level. 4.Hypertension. Continue medication. APARNA/MODL Voice ID: [id number] Report ID: [id number]
[2024-02-10] MEDS: POTASSIUM 25 MEQ EFFERV TAB PO ONE (08:25)
--- NOTE | 2024-02-11 01:33 | PN ---
Date of Progress Note: 02/10/2024 Time Of Service: 1:25 p.m. Subjective: Mr. Euceda is in his room between therapy sessions. No new complaints. Still having some significant difficulty moving the left upper extremity and hand, however, he is able to move sl ightly more. He is able to show slight increase in tone, was able to for a short while about 2 or 3 seconds maintain the left arm in an upright position once held there, but he was unable to spontaneou sly lift the left arm. No significant movement seen in the left lower extremity compared to his init ial evaluation. Otherwise, no other findings. Objective: No fevers, chills, nausea, vomiting. No reports of myalgias, arthralgias, rash, headache , or weight change. No actual other issues, although he does have medication for depression and to s timulate appetite. Physical Examination: Vital Signs: Blood pressure 143/64, pulse 60, respiratory rate 18, temperature 98.5, oxygen saturati on 98%. General: Mr. Euceda is resting comfortably in bed. He is in no significant distress from the bed side. Extremities: His left upper and lower extremity show slight improvement in strength, it is noted mor e in the upper than lower extremity. Otherwise, no new findings on examination. Laboratory Studies: White blood cell count 6.5, now normal, it was 14.1 two days ago, hemoglobin 9.3 , platelets 176. Sodium 141, potassium 3.2 which has been replaced, chloride 110, carbon dioxide 26, BUN 22, creatinine 0.97, glucose 123, calcium 8.7, magnesium 2.0, albumin 2.5, prealbumin 10.3. X-ray/imaging: No new x-rays or imaging. Medications: Medications have been reviewed. Has duloxetine 30 mg daily for depression, Megace 40 m g twice daily for poor appetite. He did receive potassium. Progress Made With Physical, Occupational, And Speech Therapy: Today with physical therapy, he compl eted bed mobility with maximal assistance, transfers with maximal assistance twice, and later on mobi lized a wheelchair 50 feet with maximum assistance. Significant difficulty with coordination in the right upper and lower extremities. The patient did have an episode where he slid out of the chair, b ut there was no injury. He was moving all limbs without any pain. No impact of his head. Assessment: Mr. Euceda is a 68-year-old patient in the rehabilitation unit with right anterior ce rebral artery stroke with left-sided deficits, which is slow to recover. He received treatment for u rinary tract infection and has dyslipidemia, hypertension, poor appetite, depression, anxiety, and no w normal white blood cell count. Plan: 1.Continue with physical, occupational, and speech therapy for 3.5 hours, 5 of 7 days. 2.His multiple comorbid conditions which are listed are managed by continuing his current medication s. He does have DVT prophylaxis on board. Appetite stimulation, antidepressant, and will continue a gain all medications for his comorbid conditions. Comorbidities That Are Impacting Rehabilitation: I finished treatment for urinary tract infection an d is doing great with respect to that. Otherwise, his comorbidities are stable and not negatively im pacting rehabilitation. SHERRY/RODNEY Voice ID: [id number] Report ID: [id number]
[2024-02-11 04:06] LABS: Anion Gap 6.1 mEq/L (5.0-15.0); Potassium 3.1 mEq/L (3.5-5.1)
[2024-02-11] MEDS: POTASSIUM CL SA 10 MEQ TAB PO ONE (07:33)
--- NOTE | 2024-02-11 13:42 | P.RH.PN ---
Estimated Length of Stay: 22 Expected Discharge Date: 02/23/24 Discharge Disposition Plan: Home Family Support: Yes Detention Goal: Mobility, Transfers, Self Care Vital Signs: Last Vital Signs Temp 97.2 F 02/11/24 06:54 Pulse 57 02/11/24 07:33 Resp 17 02/11/24 06:54 BP 132/72 02/11/24 07:33 Pulse Ox 97 02/11/24 06:54 Laboratory: Laboratory Last Values WBC 6.50 thou/uL (4.3-10.9) 02/10/24 03:31 RBC 2.97 M/uL (4.33-5.43) L 02/10/24 03:31 Hgb 9.3 g/dL (13.6-17.9) L 02/10/24 03:31 Hct 27.6 % (39.6-49.0) L 02/10/24 03:31 MCV 93.0 fL (80-100) 02/10/24 03:31 MCH 31.5 pg (27.0-35.0) 02/10/24 03:31 MCHC 33.8 g/dL (32.0-36.0) 02/10/24 03:31 RDW 13.2 % (12.1-15.2) 02/10/24 03:31 Plt Count 176 thou/uL (152-406) 02/10/24 03:31 MPV 11.3 fL (7.6-11.3) 02/10/24 03:31 Neutrophils % 64.5 % (41.7-73.7) 02/10/24 03:31 Lymphocytes % 20.2 % (15.3-44.8) 02/10/24 03:31 Monocytes % 8.9 % (3.3-12.3) 02/10/24 03:31 Eosinophils % 5.6 % (0-4.4) H 02/10/24 03:31 Basophils % 0.8 % (0-1.3) 02/10/24 03:31 Absolute Neutrophils 4.2 K/uL (1.8-8.0) 02/10/24 03:31 Absolute Lymphocytes 1.3 K/uL (0.7-4.9) 02/10/24 03:31 Absolute Monocytes 0.6 K/uL (0.1-1.3) 02/10/24 03:31 Absolute Eosinophils 0.4 K/uL (0-0.5) 02/10/24 03:31 Absolute Basophils 0.1 K/uL (0-0.5) 02/10/24 03:31 Platelet Estimate Adeq 02/06/24 07:15 Spherocytes 1+ 02/06/24 07:15 Morphology Comment Noted (NOT SEEN) 02/06/24 07:15 Sodium 141 mEq/L (136-145) 02/11/24 03:11 Potassium 3.1 mEq/L (3.5-5.1) L 02/11/24 03:11 Chloride 112 mEq/L (98-107) H 02/11/24 03:11 Carbon Dioxide 26 mEq/L (21-32) 02/11/24 03:11 Anion Gap 6.1 mEq/L (5.0-15.0) 02/11/24 03:11 BUN 20 mg/dL (7-18) H 02/11/24 03:11 Creatinine 0.96 mg/dL (0.70-1.30) 02/11/24 03:11 Est GFR (CKD-EPI) 87 ml/min (=/>90) L 02/11/24 03:11 Glucose 147 mg/dL (74-106) H 02/11/24 03:11 POC Glucose 118 mg/dL (65-120) 02/01/24 17:11 Lactic Acid 1.0 mmol/L (0.4-2.0) 02/06/24 14:47 Calcium 8.6 mg/dL (8.5-10.1) 02/11/24 03:11 Phosphorus 3.1 mg/dL (2.5-4.9) 02/04/24 03:08 Magnesium 2.0 mg/dL (1.6-2.4) 02/10/24 03:31 Total Protein 5.9 g/dL (6.1-8.1) L 02/05/24 06:46 Albumin 2.5 g/dL (3.4-5.0) L 02/10/24 03:31 Prealbumin 10.3 mg/dL (20-40) L 02/10/24 03:31 Ilwmj-7-Lzjvfiagc 0.3 g/dL (0.2-0.3) 02/05/24 06:46 Yhclw-2-Qxxsuwxsy 0.9 g/dL (0.5-0.9) 02/05/24 06:46 Gamma Globulins 0.6 g/dL (0.8-1.7) L 02/05/24 06:46 M-Jerry Report 02/05/24 06:46 M-Jerry 2 LIME K[employer] WORKER HELPER 02/05/24 06:46 Abnorm Protein Band 3 LIME KIL[employer] WORKER HELPER 02/05/24 06:46 PEP Interpretation Report H 02/05/24 06:46 Urine Color Yellow (Yellow) 02/06/24 15:00 Urine Clarity Extremely turbid (Clear) H 02/06/24 15:00 Urine pH 5.5 (5.0-7.0) 02/06/24 15:00 Ur Specific [place] 1.019 (1.005-1.030) 02/06/24 15:00 Glucose (UA)(Auto) Negative (Negative) 02/06/24 15:00 Urine Ketones Negative (Negative) 02/06/24 15:00 Urine Blood 1+ (Negative) H 02/06/24 15:00 Urine Nitrite Negative (Negative) 02/06/24 15:00 Urine Bilirubin Negative (Negative) 02/06/24 15:00 Urine Urobilinogen Normal (Normal) 02/06/24 15:00 Ur Leukocyte Esterase 500 Michelle/uL (Negative) H 02/06/24 15:00 Urine RBC 11-20 /HPF (None Seen) H 02/06/24 15:00 Urine WBC >50 /HPF (<5) H 02/06/24 15:00 Urine WBC Clumps Few /HPF (None Seen) H 02/06/24 15:00 Ur Squamous Epith Cells <5 /HPF (None Seen) 02/06/24 15:00 U Non-Squamous Epi Cells <5 /HPF (None Seen) 02/06/24 15:00 Urine Bacteria <20 /HPF (<20) 02/06/24 15:00 Hyaline Casts 0-5 /LPF (None Seen) 02/04/24 05:10 Urine Mucus Slight /HPF (None Seen) 02/06/24 15:00 Urine Culture Reflexed Reflexed 02/06/24 15:00 U Random Total Protein 46.0 mg/dL (<11.9) H 02/06/24 15:00 Urine Creatinine 208.0 mg/dL (20-370) 02/06/24 15:00 Urine Total Protein 1+ (Negative) H 02/06/24 15:00 Vancomycin Trough 11.1 mcg/mL (5.0-20.0) 02/08/24 02:01 Smear Scan Ok (OK) 02/06/24 07:15 Weight: 179 lb 3.2 oz Wound Present: No Closed Surgical Incision Present: No Negative Pressure Wound Therapy Present: No Physician Update: Labs reviewed. Mild improvement in left arm strength. Poor initiation to talk. Constraint induced therapy with a barrier. Max assist for mobility and transfers. Max assist with ADLs. Able to touch nose with left hand. He slid out of the chair yesterday. No injury. WC 50".May have to go to SNF based on rate of improvement. Summary: Patient's care plan and correction goals have been reviewed and revised as necessary. Please see the Rehabilitation Signature page for all necessary signatures.
[2024-02-11] MEDS: POTASSIUM CL SA 10 MEQ TAB PO SCH (21:28)
--- NOTE | 2024-02-12 03:48 | PN ---
Date of Progress Note: 02/11/2024 Chief Complaint: Acute kidney injury. Subjective: The patient did not require dialysis. Renal function has improved. The patient is on A ugmentin for urinary tract infection. Review of Systems: The patient denies chest pain, palpitation. Physical Examination: Lungs: Clear to auscultation bilaterally. Heart: S1, S2. Abdomen: Soft. Extremities: No edema. Assessment And Plan: 1.Acute on chronic kidney injury. Renal function has improved. Volemia is stable. The patient had prerenal azotemia. He did not require dialysis. The patient is tolerating p.o. intake. 2.Leukocytosis. The patient currently is on vancomycin. Monitor vancomycin level. 3.Hypertension. Continue medication. EB/MODL Voice ID: [id number] Report ID: [id number]
--- NOTE | 2024-02-12 22:18 | P.PN ---
Subjective Date of Service: 02/12/24 Subjective: Other (bedbound.) Physical Examination - Vital Signs Temperature: 97.6 F Blood Pressure: 140/67 Pulse: 64 Respirations: 16 Pulse Ox (%): 97 - Physical Exam General: Other (chronically ill-appearing) HEENT: Atraumatic, Normocephalic Neck: Supple Respiratory: Other (symmetric chest expansion) Cardiovascular: No rubs, No murmurs Gastrointestinal: Soft and benign, No guarding Musculoskeletal: No clubbing Integumentary: No warmth Neurological: Normal tone Urinary: Other (no bladder distention) External genitalia: Deferred Rectal: Deferred Assessment And Plan - Plan 1. ADALBERTO 2/2 prerenal state. Renal function has improved, SCr 1.0. Volemia is stable. [place] by mouth fluid intake at least 1.5-2 L per day. 2. Leukocytosis. Improved. Received Vancomycin. Monitor vancomycin level. 3. HypoK. KCl repletion prn. Encourage po intake. 4. Hypertension. Continue current medication regimen.
[2024-02-14 04:46] LABS: Absolute Eosinophils 0.7 K/uL (0-0.5); Absolute Lymphocytes (CBC) 1.7 K/uL (0.7-4.9); Absolute Monocytes 0.8 K/uL (0.1-1.3); Absolute Neutrophil 4.4 K/uL (1.8-8.0); Basophils % 0.5 % (0-1.3); Eosinophils % 8.7 % (0-4.4); Hematocrit 29.5 % (39.6-49.0); Hemoglobin 9.7 g/dL (13.6-17.9); Lymphocytes % 21.9 % (15.3-44.8); MCH 30.9 pg (27.0-35.0); MCHC 33.1 g/dL (32.0-36.0); MCV 93.4 fL (80-100); MPV 10.8 fL (7.6-11.3); Monocytes % 10.2 % (3.3-12.3); Neutrophils % 58.7 % (41.7-73.7); Platelets 226 thou/uL (152-406); RBC Red Blood Cell Count 3.15 M/uL (4.33-5.43); Red Cell Distribution Width 13.6 % (12.1-15.2)
[2024-02-14] MEDS: DOCUSATE NA/SENNA CONC 1 TAB PO SCH (07:40)
--- NOTE | 2024-02-15 00:02 | PN ---
Date of Progress Note: 02/14/2024 Time Of Service: 1:40 p.m. Subjective: Mr. Euceda is resting comfortably in his room. He is in no significant distress. He is moderately pleased with therapy and his recovery in his left upper and lower extremity stroke-aff ected side. No new complaints. Objective: No fevers, chills. Some myalgias, arthralgias, rash, headache, weight change, poor appet ite. Physical Examination: Vital Signs: Blood pressure 126/70, pulse 62, respiratory rate 18, temperature 97.8, oxygen saturati on 97%. General: Mr. Euceda is resting comfortably in no significant distress. HEENT: Normocephalic, atraumatic. Sclerae anicteric. Oropharynx is moist. Neck: Supple. Again, poor appetite is noted. He does have some improving left upper and lower extr emity weakness and numbness. Laboratory Studies: White blood cell count normal at 7.6, hemoglobin 9.7, platelets 226. Sodium 141 , potassium 4.0, chloride 112, carbon dioxide 26, BUN 20, creatinine 1.05, glucose 131, calcium 9.1. X-ray/imaging: No new x-rays or imaging. Consultations: He is followed by the Renal Service. Medications: Medications have been reviewed and are unchanged except he has the Senokot-S 1 twice da flakita for constipation. Progress Made With Physical, Occupational, And Speech Therapy: Today with physical therapy, he mobil ized the wheelchair with rxdexfu-om-fqyvcnfw assistance. Turning in bed was at minimum assistance. Srfaml-jz-nmw transfer with moderate assistance. In addition, from a low mat table, he transferred w ith maximum assistance, ral-ww-gtfyo transfer in parallel bars with minimum assistance. With speech complex yes-no questions answered with 80% accuracy. Responses, speech tangential, answered with 100 % accuracy. Deductive breathing skills demonstrated with 70% accuracy and maximum assistance. Mr. Euceda is making a fair but slow progress overall with his physical, occupational, and speech therapy. Significantly limited in terms of ability to mobilize by wheelchair and in the parallel bar s. Assessment: Mr. 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 He has dyslipidemi a, hypertension, poor appetite, depression, anxiety. Plan: 1.Continue with physical, occupational, and speech therapy for 3.5 hours, 5 out of 7 days. 2.His appetite stimulant is increased, Megace. 3.DVT prophylaxis will continue. 4.In addition, potassium replacements, Senokot for constipation, Lovenox for DVT prophylaxis, Cymbal ta for depression. 5.Dyslipidemia. Treated with Lipitor. 6.Aspirin 81 mg daily for stroke risk reduction. Comorbidities That Are Impacting Rehabilitation: Currently, poor appetite has been affecting his tl lity to thrive very quickly. He does require significant encouragement to eat and family is at the [facility]. He does better with that. SHERRY/RODNEY Voice ID: [id number] Report ID: [id number]
--- NOTE | 2024-02-15 01:59 | PN ---
Date of Progress Note: 02/14/2024 Chief Complaint: Acute kidney injury due to prerenal azotemia and volume depletion. History: The patient denies complaints, p.o. intake has improved. He denies nausea, vomiting. Physical Examination: General: The patient appears chronically ill. HEENT: Atraumatic, normocephalic. Neck: Supple. Cardiovascular: Normal S1, S2 is present. Abdomen: Soft, benign. Extremities: No edema. Impression And Plan: 1.Acute kidney injury secondary to prerenal state. Renal function has improved. Serum creatinine i s 1.0. Volemia is stable. The patient is tolerating p.o. intake. Continue by mouth hydration. The patient will consume from 1.5-2 L per day. 2.Leukocytosis, improved. The patient received vancomycin. Monitor vancomycin level. 3.Hypokalemia. Potassium repletion was ordered. Encourage p.o. intake. 4.Hypertension. Continue current medications. APARNA/MODPhyllis Voice ID: [id number] Report ID: [id number]
[2024-02-15] MEDS: MAGNESIUM OXIDE 400 MG TAB PO SCH (19:32)
--- NOTE | 2024-02-15 20:43 | PN ---
Date of Progress Note: 02/15/2024 Time Of Service: 1:45 p.m. Subjective: Mr. Euceda is resting comfortably. He is in between therapy sessions. Stroke affect ed his left upper and lower extremity which is showing some slight improvement in terms of recovery o f strength. Review of Systems: Mild myalgias and arthralgias in the left upper and lower extremity. No rash. No fevers or chills. No other positives on systems review. Physical Examination: Vital Signs: Blood pressure 135/79, pulse 65, respiratory rate 16, temperature 97.7, oxygen saturati on 97%. General: Mr. Euceda is again sitting in a chair. He has been working with therapist. He is in n o acute distress. HEENT: Normocephalic, atraumatic. Sclerae anicteric. Oropharynx pink and moist. Neck: Supple. Chest: Clear. Heart: Regular. Extremities: The left upper and lower extremity weakness is still present for proximally and distall y. Laboratory Studies: White blood cell count 7.6, hemoglobin 9.7, platelets 226. Sodium 141, potassiu m 4.0, chloride 112, carbon dioxide 26, BUN 20, creatinine 1.05, glucose 131, calcium 9.1, random uri ne protein on the 7th was 46.0. Imaging: No new imaging. Medications: Have been reviewed and magnesium oxide 400 mg twice daily added for muscle spasms. He has Senokot for constipation. Otherwise, medications as recorded previously are unchanged. Progress Made With Physical, Occupational, And Speech Therapy: Today with physical therapy, sit-to-s tand transfers done in parallel bars with minimum assistance. He did transfer from bedside chair to wheelchair and mat with moderate assistance and did so without assistive device. He was able to do s tanding balance activities on the parallel bar minimum to moderate assistance required and did ambula te the length of parallel bar which is 8 feet 5 times with maximum assistance. In terms of speech, h e ended sentences with completion that was 100% accurate. Completed yes, no questions with 70% accur acy. Three members of an abstract category named with 80% accuracy. Mr. Euceda is making better progress with speech therapies, somewhat slower progress with physical and occupational therapy. Assessment And Plan: Mr. Euceda is a 68-year-old patient in the rehabilitation unit with a right anterior cerebral artery stroke with dense left lower extremity more than left upper extremity weakne ss and he is improving slowly. His comorbids includes hypertension, dyslipidemia, poor appetite, dep ression, anxiety. He is on multiple medications as noted to assist with his comorbidities. Plan: 1.Continue with physical, occupational, and speech therapy for 3.5 hours, 5 of 7 days. 2.Continue with all medications as listed for comorbid conditions. Continue with DVT prophylaxis. Continue with appetite stimulation, aspirin for stroke risk reduction. Comorbidities That Are Impacting Rehabilitation: His significant weakness is working against him to improve quickly. He is likely going to require 24-hour care supervision, at home, it may be very dif ficult for him at this point and he may have to go to [facility] to look for more time for him t o recover to be able to transfer more safely and that family participated in his help without a high risk of him falling and injury and readmission. LB/MODL Voice ID: [id number] Report ID: [id number]
--- NOTE | 2024-02-16 21:26 | PN ---
Subjective: Mr. Euceda is resting in bed. Speech pathologist at bedside. He is more engaged tod ay, but still has significant weakness in the left upper and lower extremity from his right anterior cerebral artery ischemic stroke. He has no new complaints. Objective: No fevers, chills. No myalgias, arthralgias, rash, headache, weight change. No psychiat joaquín issues. Gastrointestinal issues are all stable. Physical Examination: Vital Signs: Blood pressure 137/76, pulse 59, respiratory rate 16, temperature 97.4, oxygen saturati on 96%. General: Mr. Euceda again is sitting in bed. He is smiling, communicating. Moves right side gokul y well which is non-affected side. Stroke on the left side is the affected side. Unable to hold the left arm up when kept in air. He has more pincer type activity with the thumb and index finger on t he left. Ability to extend his fingers very slightly improved. Left lower extremity very little mov ement noted. The patient has dense paresis on that side. Laboratory Studies: No new laboratory studies. X-ray/imaging: No new x-rays or imaging. Medications: His medications have been reviewed and remained unchanged. Progress Made With Physical, Occupational, And Speech Therapy: Today with physical therapy, he was a ble to perform ieqbqh-ep-ghy transfers with moderate assistance for strength and left lower extremity control. He required rmstwel-nt-atldyytu assistance without assistive device to go from a table tra nsfer wheelchair to actual mat and table transfer. He ambulated 5 feet with maximum assistance using a rolling walker and another 5 feet with maximum assistance using a right fela-walker. With occupat ional therapy, maximum assistance for arouyq-ld-wpa transfers and tgu-ck-zqmtkwlhiu transfer also max imum assistance. He is independent with eating at this point. Speech: He is working towards speech intelligibility, sentence formation, following a 3-step command , and using conductive reasoning. He was at 70% speech intelligibility with minimum assistance and i ndependent for sentence formation task. He needed ucpmvhdm-qd-hlmgrcv assistance to follow 3-step pl ans and moderate assistance for deductive reasoning tasks. Family members were at the bedside and we re educated. Mr. Euceda is making slow recovery process after his significant right ANGELI stroke with dense pares is of the left lower and upper extremity and some difficulty with communication. Assessment: Mr. Euceda is a 68-year-old patient in the rehabilitation unit with a right ANGELI strok e producing left-sided weakness and is significantly dense. He has hypertension, dyslipidemia, depre ssion, poor appetite, anxiety, significant risk of deep vein thrombosis. Plan: 1.Continue with physical, occupational, and speech therapy for 3.5 hours, 5 of 7 days. 2.He is continuing magnesium oxide for muscle spasms, hydrocortisone cream for antiinflammatory itch area, Lovenox 40 mg subcutaneously daily for DVT prophylaxis, Cymbalta 30 mg at bedtime for depressi on, Lipitor 80 mg at bedtime for dyslipidemia, aspirin 81 mg daily for stroke risk reduction. Contin ue amoxicillin for his urinary tract infection, Norvasc for hypertension, Tylenol for pain, Senokot-S for constipation, he has potassium replacement, Megace for appetite stimulation, Ensure Enlive for m alnutrition, and increasing protein content and promoting healing. As noted, he will have physical, occupational, and speech therapy for 3.5 hours, 5 of 7 days. Comorbidities That Are Impacting Rehabilitation: Of course, stroke, dense paresis, making it very di fficult for him to do very well. Family is educated. He will likely need much longer time than is allowed in inpatient rehabilitation before he may go home safely. It was recommended the patient go to nursing home . SHERRY/RODNEY Voice ID: [id number] Report ID: [id number]
[2024-02-17 08:17] LABS: Absolute Eosinophils 0.4 K/uL (0-0.5); Absolute Lymphocytes (CBC) 1.4 K/uL (0.7-4.9); Absolute Monocytes 0.5 K/uL (0.1-1.3); Absolute Neutrophil 4.5 K/uL (1.8-8.0); Basophils % 0.5 % (0-1.3); Eosinophils % 5.3 % (0-4.4); Hematocrit 29.3 % (39.6-49.0); Hemoglobin 10.1 g/dL (13.6-17.9); Lymphocytes % 20.4 % (15.3-44.8); MCH 31.9 pg (27.0-35.0); MCHC 34.5 g/dL (32.0-36.0); MCV 92.3 fL (80-100); MPV 9.5 fL (7.6-11.3); Neutrophils % 65.8 % (41.7-73.7); Nucleated Red Blood Cells % 0.1 % (0-0); Platelets 228 thou/uL (152-406); RBC Red Blood Cell Count 3.17 M/uL (4.33-5.43); Red Cell Distribution Width 13.6 % (12.1-15.2)
[2024-02-17 08:29] LABS: Albumin 2.9 g/dL (3.4-5.0); Anion Gap 7.2 mEq/L (5.0-15.0); Potassium 4.2 mEq/L (3.5-5.1)
--- NOTE | 2024-02-17 19:59 | PN ---
Date of Progress Note: 02/17/2024 Time Of Service: 1:20 p.m. Subjective: Mr. Euceda is resting comfortably. He does have significant dense paresis of the rig ht lower more than upper extremity, does show some increased tone in the right upper extremity can op pose the thumb and index finger over the extension of the fingers of the left hand, but not able to h old the left arm up in any meaningful way. Review of Systems: No fevers, chills. Mild myalgias, arthralgias. No rash, headache, weight change. No gastrointestin al or genitourinary complaints. Physical Examination: Vital Signs: Blood pressure 116/61, pulse of 67, respiratory rate 18, temperature 97.8, oxygen satur ation 96%. General: Mr. Euceda is resting comfortably. Does have some decrease of left nasolabial fold, lef t upper extremity, around 1 to 2, left lower extremity around 1. Strength and sensation decreased le ft upper and lower compared to right side. Abdomen: Soft. Extremities: No significant edema noted. Laboratory Studies: White blood cell count 6.9, hemoglobin 10.1, platelets 228. Sodium 139, potassi um 4.2, chloride 111, carbon dioxide 25, BUN 24, creatinine 1.04, glucose 114, calcium 9.1, magnesium 2.0, albumin 2.9, prealbumin improved from 10.3 to 23.0. X-ray/imaging: No new x-rays or imaging. Medications: Medications have been reviewed and remain unchanged. He does have magnesium oxide as n oted for muscle spasms, Senokot-S for constipation, Lovenox 40 mg subcutaneously daily for DVT prophy laxis. Progress Made With Physical, Occupational, And Speech Therapy: Today with physical therapy, able to roll in bed with minimum assistance. Cmfrmd-ni-crh transfers done with minimum assistance. Transfer from bed to the wheelchair with bursiic-va-rcammlrl assistance without an assistive. He did partici hector in gait training in the parallel bars with maximum assistance and attempted to ambulate a few fe et less than 8 in the parallel bars. Self propel a wheelchair 75 feet with contact guard assistance required for guidance. With occupational therapy, sat in wheelchair and reached outside of his zone to begin to stretch and improve dynamic balance while sitting. Neuromuscular electrical stimulation of the left biceps, left anterior deltoid for 15 minutes, intensity of 50, biceps 45. His speech con vergent naming skills exhibited with 80% accuracy and moderate assistance. Three of 3 unrelated word s recalled after 5 minutes using association. Mr. Euceda is making slow progress with physical and occupational therapies, somewhat better progr ess with speech therapy. His dense paresis of left side making it tough for him to do well. Assessment: Mr. Euceda is a 68-year-old patient in the rehabilitation unit with a right anterior cerebral artery stroke with dense paresis of left upper and lower extremity. He has some expressive or receptive aphasia. He has hypertension, dyslipidemia, depression, poor appetite, anxiety. Plan: 1.Continue with physical, occupational, and speech therapy for 3.5 hours, 5 of 7 days. 2.His multiple comorbid conditions are addressed by considering medications which are noted previous ly, include for DVT prophylaxis, for hypertension, for depression, for constipation, for insomnia, fo r poor appetite and malnutrition. Comorbidities That Are Impacting His Rehabilitation: The patient is experiencing dense paresis of th e left upper and lower extremity. He is not likely to be ready for home for quite a while and theref ore [facility] is being recommended and the family has selected a [facility] facility. SHERRY/RODNEY Voice ID: [id number] Report ID: [id number]
--- NOTE | 2024-02-18 13:39 | P.RH.PN ---
Estimated Length of Stay: 22 Expected Discharge Date: 02/22/24 Discharge Disposition Plan: Home Family Support: Yes Longterm Goal: Mobility, Transfers, Self Care Vital Signs: Last Vital Signs Temp 98.1 F 02/18/24 08:00 Pulse 63 02/18/24 08:43 Resp 18 02/18/24 08:00 BP 131/70 02/18/24 08:43 Pulse Ox 96 02/18/24 08:00 Laboratory: Laboratory Last Values WBC 6.90 thou/uL (4.3-10.9) 02/17/24 07:26 RBC 3.17 M/uL (4.33-5.43) L 02/17/24 07:26 Hgb 10.1 g/dL (13.6-17.9) L 02/17/24 07:26 Hct 29.3 % (39.6-49.0) L 02/17/24 07:26 MCV 92.3 fL (80-100) 02/17/24 07:26 MCH 31.9 pg (27.0-35.0) 02/17/24 07:26 MCHC 34.5 g/dL (32.0-36.0) 02/17/24 07:26 RDW 13.6 % (12.1-15.2) 02/17/24 07:26 Plt Count 228 thou/uL (152-406) 02/17/24 07:26 MPV 9.5 fL (7.6-11.3) 02/17/24 07:26 Neutrophils % 65.8 % (41.7-73.7) 02/17/24 07:26 Lymphocytes % 20.4 % (15.3-44.8) 02/17/24 07:26 Monocytes % 8.0 % (3.3-12.3) 02/17/24 07:26 Eosinophils % 5.3 % (0-4.4) H 02/17/24 07:26 Basophils % 0.5 % (0-1.3) 02/17/24 07:26 Absolute Neutrophils 4.5 K/uL (1.8-8.0) 02/17/24 07:26 Absolute Lymphocytes 1.4 K/uL (0.7-4.9) 02/17/24 07:26 Absolute Monocytes 0.5 K/uL (0.1-1.3) 02/17/24 07:26 Absolute Eosinophils 0.4 K/uL (0-0.5) 02/17/24 07:26 Absolute Basophils 0.0 K/uL (0-0.5) 02/17/24 07:26 Platelet Estimate Adeq 02/06/24 07:15 Spherocytes 1+ 02/06/24 07:15 Morphology Comment Noted (NOT SEEN) 02/06/24 07:15 Sodium 139 mEq/L (136-145) 02/17/24 07:26 Potassium 4.2 mEq/L (3.5-5.1) 02/17/24 07:26 Chloride 111 mEq/L (98-107) H 02/17/24 07:26 Carbon Dioxide 25 mEq/L (21-32) 02/17/24 07:26 Anion Gap 7.2 mEq/L (5.0-15.0) 02/17/24 07:26 BUN 24 mg/dL (7-18) H 02/17/24 07:26 Creatinine 1.04 mg/dL (0.70-1.30) 02/17/24 07:26 Est GFR (CKD-EPI) 79 ml/min (=/>90) L 02/17/24 07:26 Glucose 114 mg/dL (74-106) H 02/17/24 07:26 POC Glucose 118 mg/dL (65-120) 02/01/24 17:11 Lactic Acid 1.0 mmol/L (0.4-2.0) 02/06/24 14:47 Calcium 9.1 mg/dL (8.5-10.1) 02/17/24 07:26 Phosphorus 3.1 mg/dL (2.5-4.9) 02/04/24 03:08 Magnesium 2.0 mg/dL (1.6-2.4) 02/17/24 07:26 Total Protein 5.9 g/dL (6.1-8.1) L 02/05/24 06:46 Albumin 2.9 g/dL (3.4-5.0) L 02/17/24 07:26 Prealbumin 23.0 mg/dL (20-40) 02/17/24 07:26 Nzbzu-0-Hzvzgbejw 0.3 g/dL (0.2-0.3) 02/05/24 06:46 Fqmsb-5-Aiiiqgbvv 0.9 g/dL (0.5-0.9) 02/05/24 06:46 Gamma Globulins 0.6 g/dL (0.8-1.7) L 02/05/24 06:46 M-Jerry Report 02/05/24 06:46 M-Jerry 2 TITLE ONE TEACHER 02/05/24 06:46 Abnorm Protein Band 3 TITLE ONE TEACHER 02/05/24 06:46 PEP Interpretation Report H 02/05/24 06:46 Urine Color Yellow (Yellow) 02/06/24 15:00 Urine Clarity Extremely turbid (Clear) H 02/06/24 15:00 Urine pH 5.5 (5.0-7.0) 02/06/24 15:00 Ur Specific [place] 1.019 (1.005-1.030) 02/06/24 15:00 Glucose (UA)(Auto) Negative (Negative) 02/06/24 15:00 Urine Ketones Negative (Negative) 02/06/24 15:00 Urine Blood 1+ (Negative) H 02/06/24 15:00 Urine Nitrite Negative (Negative) 02/06/24 15:00 Urine Bilirubin Negative (Negative) 02/06/24 15:00 Urine Urobilinogen Normal (Normal) 02/06/24 15:00 Ur Leukocyte Esterase 500 Michelle/uL (Negative) H 02/06/24 15:00 Urine RBC 11-20 /HPF (None Seen) H 02/06/24 15:00 Urine WBC >50 /HPF (<5) H 02/06/24 15:00 Urine WBC Clumps Few /HPF (None Seen) H 02/06/24 15:00 Ur Squamous Epith Cells <5 /HPF (None Seen) 02/06/24 15:00 U Non-Squamous Epi Cells <5 /HPF (None Seen) 02/06/24 15:00 Urine Bacteria <20 /HPF (<20) 02/06/24 15:00 Hyaline Casts 0-5 /LPF (None Seen) 02/04/24 05:10 Urine Mucus Slight /HPF (None Seen) 02/06/24 15:00 Urine Culture Reflexed Reflexed 02/06/24 15:00 U Random Total Protein 46.0 mg/dL (<11.9) H 02/06/24 15:00 Urine Creatinine 208.0 mg/dL (20-370) 02/06/24 15:00 Urine Total Protein 1+ (Negative) H 02/06/24 15:00 Vancomycin Trough 11.1 mcg/mL (5.0-20.0) 02/08/24 02:01 Smear Scan Ok (OK) 02/06/24 07:15 Weight: 187 lb 3.2 oz Wound Present: No Closed Surgical Incision Present: No Negative Pressure Wound Therapy Present: No Physician Update: Labs reviewed and are stable. BIMS 11. No significant pain. Dense left sided weakness. Initiating speech more, improved executive functioning. 3/4 short term and 4/5 [facility] goals. Min assist for transfers. Sit to joint yarner parallel bars with CGA. Max assist for 8' in parallel bars. Sit on tub bench with a wedge for the left arm. Improved sitting balance. Min assist to pull up. 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 Please see the Rehabilitation Signature page for all necessary signatures.
--- NOTE | 2024-02-19 03:31 | PN ---
Date of Progress Note: 02/18/2024 Chief Complaint: Generalized weakness. Subjective: The patient is complaining of some extremity swelling. Denies PND or orthopnea. Physical Examination: Lungs: Clear to auscultation bilaterally. Heart: S1 and S2. Abdomen: Soft. Extremities: Slight edema. Impression And Plan: 1.Acute on chronic kidney injury due to prerenal azotemia and nonoliguric acute tubular necrosis. P atient is consuming fluid and he appears to be in good fluid. Continue adequate hydration by mouth. 2.Leukocytosis, improved. The patient received vancomycin. Monitor vancomycin level. 3.Hypokalemia. Potassium repletion as needed. Continue to encourage p.o. intake. 4.Hypertension. Continue current medication. EB/MODL Voice ID: [id number] Report ID: [id number]
--- NOTE | 2024-02-19 23:05 | PN ---
Date of Progress Note: 02/19/2024 Chief Complaint: Acute on chronic kidney injury with prerenal azotemia. Subjective: Urine output has improved. Patient is tolerating p.o. intake. IV fluids were terminate d. Review of Systems: Denies chest pain, palpitation. Physical Examination: Lungs: Clear to auscultation bilaterally. Heart: S1, S2. Abdomen: Soft. Extremities: No edema. Impression And Plan: 1.Acute on chronic kidney injury due to prerenal azotemia and nonoliguric acute tubular necrosis. T he patient is consuming p.o. fluid and he appears to be in optimal volemia status. Continue adequate hydration by mouth. 2.Leukocytosis, improved. Continue to monitor electrolytes, renal panel and continue to monitor van comycin level. 3.Hypokalemia. Potassium repletion as needed. Continue to encourage p.o. intake. 4.Hypertension. Continue current medication. EB/MODL Voice ID: [id number] Report ID: [id number]
[2024-02-20 02:51] VITALS: BMI 26.8
--- NOTE | 2024-02-20 22:32 | PN ---
Date of Progress Note: 02/20/2024 Chief Complaint: Acute on chronic kidney injury. History Of Present Illness: The patient developed prerenal azotemia, non-oliguric to cont rol volemia and renal function has improved. The patient is on p.o. hydration. He tolerates p.o. in take. Review of Systems: Denies chest pain, palpitations. Physical Examination: Lungs: Clear to auscultation bilaterally. Heart: S1, S2. Abdomen: Soft. Extremities: No edema. Impression And Plan: 1.Acute on chronic kidney injury due to prerenal azotemia and non-oliguric optimal volemi a status. Continue adequate hydration monitor vancomycin. 2.Hypokalemia. Encourage p.o. intake. Electrolytes are stabilizing. 3.Hypertension, continue current medications. APARNA/RODNEY Voice ID: [id number] Report ID: [id number]
[2024-02-21] MEDS: APIXABAN 2.5 MG TABLET PO SCH (09:00)
[2024-02-21] MEDS: AMLODIPINE 5 MG TAB PO SCH (21:04)
--- NOTE | 2024-02-22 01:52 | PN ---
Date of Progress Note: 02/21/2024 Time Of Service: 1:25 p.m. Subjective: Mr. Euceda is feeling better with his therapy, but still has significant dense paresi s of left upper and lower extremity. Unable to hold the left arm up as well the left leg. Does have of course full strength in the right upper and lower extremity. Objective: No fevers, chills, nausea, vomiting. No significant myalgias, arthralgias, rash, headach e, or weight change. Physical Examination: Vital Signs: Blood pressure 118/68, pulse 62, respiratory rate of 16, temperature 97.5, oxygen satur ation 97%. General: Mr. Euceda is sitting in a chair, trying to mobilize the wheelchair. He does have signi ficant difficulty trying to stay in a wheelchair as his right upper extremity coordination is somewha t limited. 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 He is able to hol d onto the therapist hand and try to mobilize the wheelchair, but is hitting the wall and has to be r edirected in terms of his direction. Laboratory Studies: No new laboratory studies. X-ray/imaging: No new x-rays or imaging. He is followed by the [facility]al [facility]. Progress Made With Physical, Occupational, And Speech Therapy: Today with physical therapy, he compl eted gait training 8 feet twice and pallet bars with minimum assistance. Also, a bilateral platform walker was used to ambulate 20 feet with moderate assistance and another 35 feet twice with moderate assistance. Wheelchair mobilization continued for 50 feet with contact guard assistance and then he mobilized a wheelchair 150 feet with minimal assistance for maintaining direction. With speech therapy, he did improve his BIMS score from 11 to 15 and SLUMS score from 15 to 18. Bee pollack has short-term memory difficulties, but that did improve with use of speech strategies for better i ntelligibility. Mr. Euceda is making again slow overall progress with recovery of his left upper and lower extremi ty weakness and numbness after stroke. Also, has some difficulty with cognitive issues. He will be discharged [facility] to continue therapy as he is not able to be at home safely at this poin t. Assessment: Mr. 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 He has expressive ap hasia, hypertension, dyslipidemia, depression, poor appetite, anxiety. Plan: 1.Continue with physical, occupational, and speech therapy until he was discharged and that is 5 of 7 days and 3.5 hours. 2.Continue with all comorbid condition medications including DVT prophylaxis, hypertension, depressi on, constipation, insomnia, poor appetite, malnutrition. Comorbidities That Are Impacting His Rehabilitation: The patient is again not able to [facility] as he has significant paresis of left lower extremity, maximum assistance for activities of [facility] and mobilization making it difficult for him to be able to return home without 24-hour care supervision and professional help. SHERRY/RODNEY Voice ID: [id number] Report ID: [id number]
--- NOTE | 2024-02-22 04:05 | PN ---
Date of Progress Note: 02/21/2024 Chief Complaint: Acute kidney injury, prerenal azotemia. Subjective: Renal function has gradually improved. The patient is tolerating p.o. intake. He denie s lower urinary tract symptoms. The patient was found to have proteinuria, and workup was initiated to rule out monoclonal gammopathy of unknown significance. Review of Systems: Denies chest pain, palpitations. Physical Examination: Lungs: Clear to auscultation bilaterally. Heart: S1 and S2. Abdomen: Soft, benign. Extremities: No edema. Impression And Plan: 1.Acute on chronic kidney injury. Continue to monitor electrolytes. Continue p.o. hydration. 2.Hypertension. Blood pressure controlled. 3.Proteinuria. Follow up on lab results. 4.Fatigue, generalized weakness. The patient is advancing with physical therapy. EB/MODL Voice ID: [id number] Report ID: [id number]
[2024-02-22 06:49] VITALS: BP 101/60; TEMP 97
--- NOTE | 2024-02-22 14:56 | PN ---
Date of Progress Note: 02/22/2024 Subjective: The patient was admitted to the hospital with deconditioning. The patient to undergo PT /OT. The patient had acute kidney injury, treated, recovered. The patient feeling much better. Physical Examination: Vital Signs: When I saw the patient, blood pressure 101/60, pulse of 60, afebrile. Chest: Clear to auscultation. Heart: S1, S2 regular. Abdomen: Soft, nontender. Extremities: No edema. Neuro: Alert. Left-sided weakness. Lab: Hemoglobin 10.1. Sodium 139, potassium 4.2, bicarb 25, BUN 24, creatinine 1. Calcium 9. GFR of 79. Current Medications: Include , mirtazapine, amlodipine 5 mg, atorvastatin, Eliquis, ____, magnesium oxide, bisacodyl. Assessment And Plan: 1.Acute kidney injury secondary to prerenal, recovered, resolved. 2.Hypertension, controlled, optimal, continue current treatment. 3.Deconditioning. Continue PT/OT. 4.The patient cleared from the renal standpoint for discharge planning. MARIAA Voice ID: [id number] Report ID: [id number]
[2024-02-24 16:08] LABS: KAPPA LC FREE UR 59.59 mg/L (<=32.90); LAMBDA LC FREE UR 10.92 mg/L (<=3.79)
== END 2024-02-22 13:10 | DRG 56 ==
LOC: 5TH 15:45
PROVIDERS: ADMIT Psychiatry & Neurology Neurology with Special Qualifications in Child Neurology; ATTEND Psychiatry & Neurology Neurology with Special Qualifications in Child Neurology
DX: I69.354 Hemiplegia and hemiparesis following cerebral infarction affecting left non-dominant side (principal); N17.0 Acute kidney failure with tubular necrosis; N30.00 Acute cystitis without hematuria; I69.320 Aphasia following cerebral infarction; E87.6 Hypokalemia; E78.5 Hyperlipidemia, unspecified; R53.1 Weakness; I12.9 Hypertensive chronic kidney disease with stage 1 through stage 4 chronic kidney disease, or unspecified chronic kidney disease; N18.9 Chronic kidney disease, unspecified; D64.9 Anemia, unspecified; R73.9 Hyperglycemia, unspecified; E86.0 Dehydration; R53.81 Other malaise; F41.9 Anxiety disorder, unspecified; G47.00 Insomnia, unspecified; K59.00 Constipation, unspecified; F32.A Depression, unspecified
CPT/HCPCS: 36415; 71045; 76770; 80048; 80069; 80202; 81001; 82040; 82570; 82947; 83520; 83605; 83735; 84134; 84156; 84165; 85025; 86334; 87040; 87077; 87086; 87088; 87186; 92507; 92523; 97032; 97110; 97112; 97116; 97129; 97163; 97165; 97530; 97542; J0696; J1650; J7030; J7040